=== PATIENT | female | born 1995 | race Caucasian/White ===

== ENCOUNTER → 2020-01-29 13:00 | Outpatient (BNVA) | payer OTHER, MEDICAID, SELFPAY | PROVIDERS: Family Provider Nurse Practitioner; PCP Nurse Practitioner; Visit Provider Obstetrics & Gynecology | DX: Z32.01 Encounter for pregnancy test, result positive (principal) | CPT/HCPCS: 81025 ==

== ENCOUNTER 2020-02-10 17:19 | Emergency (ER) | payer OTHER, MEDICAID, SELFPAY ==
[2020-02-10 17:25] VITALS: BP 143/92; PULSE 108; RESP 17; TEMP 36.3; O2SAT 100; BMI 25.7
--- NOTE | 2020-02-10 17:28 | ED_ITS ---
HPI - General: Chief complaint: Urogenital-Female Stated complaint: PREG/BLEEDING 6 WEEKS Time Seen by Provider: 02/10/20 17:23 Source: patient Mode of arrival: ambulatory Limitations: no limitations History of Present Illness: HPI Narrative: 24-year-old female is currently 6 weeks states she has had slight bleeding over the last 2 days. She states she has passed small clots as well. Patient states she has had some lower abdominal cramping pain she rates a 2 out of 10. Denies any fevers. This is her first . Complaint: vaginal bleeding Onset (ago): day(s) Location: pelvis Severity: mild Quality: Cramping Relieving factors: none Exacerbating factors: none Vaginal discharge: none Vaginal bleeding: light Associated symptoms: Deny abdominal pain, headache(s), nausea or vomiting Review of Systems Const: Denies: fever, chills, body aches or change in appetite Eyes: Denies: blurry vision or eye discomfort ENMT: Denies: throat pain or dental pain Card: Denies: chest pain Resp: Denies: shortness of breath GI: Denies: abdominal pain, nausea, vomiting or diarrhea : Reports: vaginal bleeding Musc: Denies: neck pain or back pain Skin/Breast: Denies: rash Neuro: Denies: headache Psych: Denies: depression Jarett/Lymph: Denies: easy bruising All/Imm: Denies: hives PFSH ED PFSH: Medical History PCOS (polycystic ovarian syndrome) Situational anxiety Surgical History History of oral surgery Family History Other Cancer Heart disease Hypertension Social History Smoking and tobacco status: never smoked Second hand smoke exposure: Yes Smoking risk assessment/counseling performed?: Yes Alcohol intake: current Alcohol intake frequency: holidays/special occasions only Desire information about alcohol rehabilitation?: No Counseling given: No Desire information about substance/drug rehabilitation?: No Counseling given: No Adopted: No Caregiver/support person: No Lives independently: Yes Household members: significant other Marital status: Single Number of children: 0 Number of grandchildren: 0 service: No Current occupational status: employed History of recent travel: No Sexually active: Yes Current gender identity: Female Physical Exam Const: COMMON NORMALS: no apparent distress, oriented x3 and healthy appearing HENMT: COMMON NORMALS: normocephalic and head/scalp atraumatic HEAD & SCALP: normocephalic and atraumatic Eye: COMMON NORMALS: PERRL and EOMs intact bilaterally PUPIL: Yes PERRL Neck/C-Spine: COMMON NORMALS: full ROM and supple Chest: COMMONS NORMALS: inspection of chest normal and palpation of chest normal Resp: COMMON NORMALS: normal respiratory effort, no retractions, no use of accessory muscles and clear to auscultation bilaterally AUSCULTATION: clear to auscultation bilaterally Cardio: COMMON NORMALS: regular rate, regular rhythm and no murmurs RATE: regular rate RHYTHM: regular rhythm GI: COMMON NORMALS: normal to inspection, nondistended, normoactive bowel sounds, soft to palpation, non-tender and no masses PALPATION: Yes soft Extremity: COMMON NORMALS: normal to inspection and full ROM Neuro: COMMON NORMALS: oriented x3, moves all extremities and no focal motor deficits Psych: COMMON NORMALS: mental status grossly normal, thought process normal and cooperative THOUGHT PROCESS: normal thought process Skin: COMMON NORMALS: no rashes or lesions noted and no wounds GENERAL SKIN EXAM: no rashes or lesions noted Course Vital Signs: Vital signs: Vital Signs Temperature 97.4 F L 02/10/20 17:25 Pulse Rate 101 H 02/10/20 18:04 Respiratory Rate 16 02/10/20 18:04 Blood Pressure 127/62 02/10/20 18:04 Pulse Oximetry 100 02/10/20 18:04 MDM - OB/Uterine Contractions MDM Narrative: Medical decision making narrative: Patient presents here with likely miscarriage. Patient's bleeding is minimal and she is stable for discharge. She is to get her quantitative level checked in 2 days. She is return if worsening. Lab Data: Labs: Lab Results 02/10/20 02/10/20 02/10/20 Range/Units 17:30 17:30 17:30 WBC 10.3 H (4.0-10.0) 10^3/ uL RBC 4.41 (4.1-5.3) 10^6/u L Hgb 12.8 (11.5-15.3) g/dL Hct 39.4 (37.0-47.0) % MCV 89.3 (81-99) fL MCH 29.0 (28.0-34.0) pg MCHC 32.5 (30.0-36.0) g/dL RDW 13.6 (12.1-15.1) % Plt Count 355 (130-400) 10^3/c mm MPV 8.8 (7.4-10.4) fL Neut % (Auto) 59.7 % Lymph % (Auto) 31.1 % [place] % (Auto) 6.9 % Eos % (Auto) 1.3 % Baso % (Auto) 0.6 % Neut # (Auto) 6.2 (1.8-7.7) 10^3/u L Lymph # (Auto) 3.2 (0.8-4.8) 10^3/u L [place] # (Auto) 0.7 (0.2-0.9) 10^3/u L Eos # (Auto) 0.1 (0.0-0.8) 10^3/u L Baso # (Auto) 0.1 (0.0-0.1) 10^3/u L Nucleated RBC % (a uto) 0 % Nucleated RBCs # 0.0 /100WBC Ser , Fer[place] i-Qnt 397.80 mIU/mL Blood Type O Positive Rho(D) Type Positive Imaging Data^: US OB: Attestation: I personally reviewed and interpreted this imaging study as follows: Radiologist's impression: likely spontaneous Discharge Plan Discharge Patient Disposition: Home, Self-Care Clinical Impression: Threatened miscarriage Condition: Stable Prescriptions: No Action bupropion HCl [Wellbutrin SR] 150 mg tablet sustained-release 12 hr 150 mg PO Q12H Qty: 60 RF: 5 Ortho-Novum (28) 1-35 mg-mcg tablet 1 tab PO DAILY Qty: 28 RF: 5 Discharge Orders: Discharge Order (Routine); Ordered 02/10/20 Ordered By: Elton Mancilla Referrals: Elias Gunn, TELEPRINTER-C [Primary Care Provider] - Discharge Diet: Advance as tolerated Discharge Activity: Resume usual activity Patient Instructions: Threatened Miscarriage (ED) Coding Level of Care Code ED Electrical Line Splicer for Chg Fwd Exam Comprehensive
[2020-02-10 17:30] VITALS: BP 139/81; PULSE 95; RESP 16; O2SAT 100
[2020-02-10 17:35] VITALS: BP 138/74; PULSE 103; RESP 16; O2SAT 98
[2020-02-10 17:41] LABS: Basophils # 0.1 10^3/uL (0.0-0.1); Basophils % 0.6 %; Eosinophils # 0.1 10^3/uL (0.0-0.8); Eosinophils % 1.3 %; Hematocrit 39.4 % (37.0-47.0); Hemoglobin 12.8 g/dL (11.5-15.3); Lymphocytes # 3.2 10^3/uL (0.8-4.8); Lymphocytes % 31.1 %; Mean Corpuscular HGB Conc 32.5 g/dL (30.0-36.0); Mean Corpuscular Volume 89.3 fL (81-99); Mean Platelet Volume 8.8 fL (7.4-10.4); Monocytes # 0.7 10^3/uL (0.2-0.9); Monocytes % 6.9 %; Neutrophils # 6.2 10^3/uL (1.8-7.7); Neutrophils % 59.7 %; Nucleated Red Blood Cells % 0 %; Platelet Count 355 10^3/cmm (130-400); Red Blood Count 4.41 10^6/uL (4.1-5.3); Red Cell Distribution Width 13.6 % (12.1-15.1); White Blood Count 10.3 10^3/uL (4.0-10.0)
--- NOTE | 2020-02-10 17:48 | US_ITS ---
WS: [id number] Transabdominal and transvaginal pelvic imaging. HISTORY: Threatened miscarriage. No intrauterine gestation is noted on transvaginal or transabdominal imaging. Endometrium is very sli ghtly thickened and heterogeneous. No free fluid. No adnexal masses. US/US OB lmt with transvaginal IMPRESSION: 1. No intrauterine gestational sac is identified. 2. No free fluid. 3. No adnexal masses. 4. Correlate for decreasing beta hCG levels to exclude ectopic .
[2020-02-10 18:04] VITALS: BP 127/62; PULSE 101; RESP 16; O2SAT 100
[2020-02-10 18:48] VITALS: BP 122/75; PULSE 92; RESP 16; O2SAT 99
== END 2020-02-10 19:00 | disposition home or self-care (01) ==
PROVIDERS: Emergency Provider Emergency Medicine; Family Provider Nurse Practitioner; PCP Nurse Practitioner
DX: O20.0 Threatened abortion (principal); Z3A.01 Less than 8 weeks gestation of pregnancy
CPT/HCPCS: 12345; 76801; 76815; 76817; 84702; 85025; 86900; 99281; 99282; 99283

== ENCOUNTER → 2020-02-13 13:51 | Outpatient (BNVA) | payer OTHER, MEDICAID, SELFPAY | PROVIDERS: Family Provider Nurse Practitioner; PCP Nurse Practitioner; Visit Provider Obstetrics & Gynecology | DX: O20.0 Threatened abortion (principal); Z34.90 Encounter for supervision of normal pregnancy, unspecified, unspecified trimester | CPT/HCPCS: 84702 ==

== ENCOUNTER → 2020-02-17 11:12 | Outpatient (BNVA) | payer OTHER, MEDICAID, SELFPAY | PROVIDERS: Family Provider Nurse Practitioner; PCP Nurse Practitioner; Visit Provider Obstetrics & Gynecology | DX: O20.0 Threatened abortion (principal) | CPT/HCPCS: 84702 ==

== ENCOUNTER → 2020-02-19 09:10 | Outpatient (BNVA) | payer OTHER, MEDICAID, SELFPAY | PROVIDERS: Family Provider Nurse Practitioner; PCP Nurse Practitioner; Visit Provider Obstetrics & Gynecology | DX: O46.90 Antepartum hemorrhage, unspecified, unspecified trimester (principal) | CPT/HCPCS: 87491; 87591 ==

== ENCOUNTER 2020-02-21 08:19 | Observation (INO) | payer OTHER, MEDICAID, SELFPAY ==
[2020-02-21] VITALS (22 sets, daily range): BP systolic 100–130; BP diastolic 50–74; PULSE 81–117; RESP 16–20; TEMP 36.4–37.3; O2SAT 96–100; BMI 26.5
--- NOTE | 2020-02-21 09:13 | W.ED.ABDPA2 ---
Documented by User: VELIA Serrano 02/21/20 10:38 HPI - Abdominal Pain General: Chief Complaint: Nausea/Vomiting/Diarrhea Stated Complaint: ABD PAIN, N/V/D Time Seen by Provider: 02/21/20 08:36 Source: patient Mode of arrival: ambulatory Limitations: no limitations History of Present Illness: HPI narrative: Patient is a very nice 24-year-old female at approximately 5 weeks here for complaints of abdominal pain. Patient has had ultrasounds previously which has not showed a confirmed IUP. Her last hCG on 02/16 was roughly 1800. She states last night around 11 PM while in the bathtub she began having severe midline abdominal pain. She states afterwards she had several episodes of diarrhea and vomiting. She reports afterwards she began having pain radiating up into her bilateral shoulders. She has felt dizzy and lightheaded throughout the day today. MD elicited complaint: abdominal pain and other (nausea, vomiting, diarrhea ) Onset (ago): hour(s) Pain Consistency: constant Location: Diffuse (moreso on R side) Quality: cramping and aching Radiation: RUQ Migration to: other (bilateral shoulders ) Exacerbating factors: other (positional ) Associated Symptoms: Reports diarrhea, nausea and vomiting; Denies chills, dysuria, fever(s) and syncope Related Data: Date of Last Menstrual Period: 01/12/20 Review of Systems Const: Denies: fever, chills or body aches Eyes: Denies: change in vision, blurry vision or seeing flashes ENMT: Denies: throat pain, enlarged tonsils or painful swallowing Card: Denies: chest pain, palpitations, irregular heart rhythm, edema, lightheadedness, syncope, pre-syncope or shortness of breath on exertion Resp: Denies: shortness of breath, productive cough, non-productive cough, coughing up blood or chest congestion GI: Reports: abdominal pain, nausea, vomiting and diarrhea : Reports: vaginal bleeding (has had this over the past 1-2 weeks ); Denies: flank pain, difficulty urinating, painful urination, urinary frequency, urinary urgency, urinary hesitancy or vaginal discharge Musc: Denies: neck pain or back pain Skin/Breast: Denies: rash Neuro: Denies: headache, numbness in extremities, weakness in extremities or changes in sensation PFSH ED PFSH: Medical History History of infertility She and her boyfriend were unable to get and as a result underwent evaluation for infertility in [id number] Wilkes the results of which were normal and she underwent 1 cycle of Clomid however decided to wait after that and not follow-up with any treatment. No pertinent past medical history Denies diabetes, asthma, seizures, hypertension, DVT/PE. PMD: Elias Gunn PCOS (polycystic ovarian syndrome) Diagnosed with PCOS in 2018 with irregular cycles and elevated testosterone levels by Dr. Wilkes. She was placed on control pills to regulate cycles. Situational anxiety Had anxiety treated by Wellbutrin. She stopped in December or January as she was not a good pill taker and at this time is asymptomatic. Surgical History History of oral surgery [place] teeth removal in 2013 Family History Family/Other Heart disease Paternal great uncles Father Hypertension Grandmother Multiple sclerosis maternal Denies family history of Colon cancer Ovarian cancer Diabetes Hyperlipidemia Breast cancer Uterine cancer Thyroid condition Stroke Social History Smoking and tobacco status: former smoker Alcohol intake: former Additional social history: - TOBACCO USE: Started smoking at age 18 and smoked up to 1 pack per day until 11/2019 when she stopped smoking. Denies any tobacco use since then. ALCOHOL USE: Reports history of social alcohol use, once yearly on average, denies use since becoming . DRUG USE: Has used marijuana 1-2 times a month from the age of 17 until the age of 19 and 2018. Denies any use since then. Denies any other drug use as well. 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 Female Reproductive History: Date of last menstrual period: 01/12/20 Physical Exam Const: COMMON NORMALS: no apparent distress, average body habitus, oriented x3, no limitations, healthy appearing, alert and well nourished GENERAL APPEARANCE: cooperative and anxious OTHER: appears anxious HENMT: COMMON NORMALS: normocephalic and head/scalp atraumatic HEAD & SCALP: normocephalic and atraumatic Neck/C-Spine: COMMON NORMALS: full ROM and no lymphadenopathy OTHER: no crepitus noted Chest: COMMONS NORMALS: inspection of chest normal and palpation of chest normal Resp: COMMON NORMALS: normal respiratory effort and clear to auscultation bilaterally AUSCULTATION: clear to auscultation bilaterally Cardio: COMMON NORMALS: regular rhythm RATE: tachycardic (mild) RHYTHM: regular rhythm OTHER: when pt sat up from lying down for abdominal exam she became tachycardic in the 130s GI: COMMON NORMALS: no hepatosplenomegaly and no masses AUSCULTATION: Yes hypoactive bowel sounds PALPATION: Yes tender (diffusely ) and Yes no hepatosplenomegaly : COMMON NORMALS: Yes no CVA tenderness BLADDER/KIDNEY EXAM: Yes no CVA tenderness Back/Pelvis: COMMON NORMALS: no CVA tenderness Neuro: RICARDO COMA SCALE: document GCS findings Anderson coma scale eye opening: Spontaneous Ricardo coma scale verbal response: Orientated Ricardo coma scale motor response: Obey commands Ricardo coma scale total score: 15 COMMON NORMALS: oriented x3 SENSORIUM/ORIENTATION: Yes alert Skin: GENERAL SKIN EXAM: other (diaphoretic) Course Vital Signs: Vital signs: Vital Signs Temperature 98.0 F 02/21/20 18:27 Pulse Rate 106 H 02/21/20 18:27 Respiratory Rate 16 02/21/20 18:27 Blood Pressure 108/64 02/21/20 18:27 Pulse Oximetry 98 02/21/20 18:27 MDM - Abdominal Pain MDM Narrative: Medical decision making narrative: Based on patient's clinical exam of a diffuse abdominal pain with radiation into her shoulders as well as becoming very tachycardic with sitting up I have a high suspicion of a ruptured ectopic . Dr. Kim was alerted. Ultrasound was contacted for a stat ultrasound which did show blood in her abdominal cavity. Her hemoglobin currently is 10.5. She was 12.8 on 02/09. Dr. Kim spoke to Dr. Blackburn who will immediately come evaluate patient and take to the OR. Patient was typed and screened her 4 units of blood. She has had almost a liter of fluids and a second liter was ordered. TXA was given. Lab Data: Labs: Lab Results 05/08/20 05/08/20 05/08/20 Range/Units 09:15 09:15 09:15 WBC 19.5 H (4.0-10.0) 10^3/ uL RBC 3.58 L (4.1-5.3) 10^6/u L Hgb 10.5 L (11.5-15.3) g/dL Hct 32.5 L (37.0-47.0) % MCV 90.8 (81-99) fL MCH 29.3 (28.0-34.0) pg MCHC 32.3 (30.0-36.0) g/dL RDW 13.6 (12.1-15.1) % Plt Count 400 (130-400) 10^3/c mm MPV 9.4 (7.4-10.4) fL Neut % (Auto) 89.9 % Lymph % (Auto) 7.2 % Sublette % (Auto) 2.3 % Eos % (Auto) 0.0 % Baso % (Auto) 0.1 % Neut # (Auto) 17.5 H (1.8-7.7) 10^3/u L Lymph # (Auto) 1.4 (0.8-4.8) 10^3/u L Sublette # (Auto) 0.4 (0.2-0.9) 10^3/u L Eos # (Auto) 0.0 (0.0-0.8) 10^3/u L Baso # (Auto) 0.0 (0.0-0.1) 10^3/u L Nucleated RBC % (a uto) 0 % Nucleated RBCs # 0.0 /100WBC Sodium 137 (136-145) mmol/L Potassium 4.5 (3.5-5.1) mmol/L Chloride 101 (98-107) mmol/L Carbon Dioxide 21 L (22-29) mmol/L Anion Gap 19.5 H (5-19) BUN 18 (6-20) mg/dL Creatinine 0.8 (0.5-0.9) mg/dL GFR Calculation 89.7 L (90-130) mL/min Glucose 181 H (65-115) mg/dL Calculated Osmolal ity 285 (285-295) mOsm/k g Lactate 3.1 H (0.5-2.2) mmol/L Calcium 9.0 (8.5-10.5) mg/dL Total Bilirubin 0.2 (0.15-1.2) mg/dL AST 15 (0-32) U/L ALT 13 (0-33) U/L Alkaline Phosphata se 54 (35-105) IU/L Total Protein 7.2 (6.6-8.7) g/dL Albumin 4.3 (3.5-5.2) g/dL Globulin 2.9 (1.3-4.6) g/dL Lipase 13 (13-60) U/L Ser , Fercho i-Qnt 2927.00 mIU/mL Blood Type Rho(D) Type Antibody Screen Crossmatch 02/21/20 02/21/20 Range/Units 09:48 10:44 WBC (4.0-10.0) 10^3/ uL RBC (4.1-5.3) 10^6/u L Hgb 8.6 L (11.5-15.3) g/dL Hct 26.7 L (37.0-47.0) % MCV (81-99) fL MCH (28.0-34.0) pg MCHC (30.0-36.0) g/dL RDW (12.1-15.1) % Plt Count (130-400) 10^3/c mm MPV (7.4-10.4) fL Neut % (Auto) % Lymph % (Auto) % [place]lette % (Auto) % Eos % (Auto) % Baso % (Auto) % Neut # (Auto) (1.8-7.7) 10^3/u L Lymph # (Auto) (0.8-4.8) 10^3/u L Sublette # (Auto) (0.2-0.9) 10^3/u L Eos # (Auto) (0.0-0.8) 10^3/u L Baso # (Auto) (0.0-0.1) 10^3/u L Nucleated RBC % (a uto) % Nucleated RBCs # /100WBC Sodium (136-145) mmol/L Potassium (3.5-5.1) mmol/L Chloride (98-107) mmol/L Carbon Dioxide (22-29) mmol/L Anion Gap (5-19) BUN (6-20) mg/dL Creatinine (0.5-0.9) mg/dL GFR Calculation (90-130) mL/min Glucose (65-115) mg/dL Calculated Osmolal ity (285-295) mOsm/k g Lactate (0.5-2.2) mmol/L Calcium (8.5-10.5) mg/dL Total Bilirubin (0.15-1.2) mg/dL AST (0-32) U/L ALT (0-33) U/L Alkaline Phosphata se (35-105) IU/L Total Protein (6.6-8.7) g/dL Albumin (3.5-5.2) g/dL Globulin (1.3-4.6) g/dL Lipase (13-60) U/L Ser , Fercho i-Qnt mIU/mL Blood Type O Positive Rho(D) Type Positive Antibody Screen Negative Crossmatch See Detail Discharge Plan Discharge Patient Disposition: Admitted As Inpatient Admit Provider: Kris lBackburn Clinical Impression: Hemoperitoneum due to rupture of tubal ectopic Condition: Stable Discharge Orders: Discharge Order (Routine); Ordered 02/21/20 Ordered By: Kris Blackburn Referrals: Kris Blackburn MD [Physician] - 03/06/20 11:00 am (Postoperative appointment) Discharge Diet: Advance as tolerated Discharge Activity: Limit activity as instructed Patient Instructions: Hydrocodone/Acetaminophen (By mouth), Ibuprofen (By mouth), Ectopic , OB Discharge Report, OB Laproscopic Surgery - [facility], OB Food/Drug Interaction Guide Discharge Date/Time: 02/21/20 12:38 Coding Level of Care Code ED Director Cardiovascular for Chg Fwd Exam Comprehensive Documented by User: Zach Kim DO 02/22/20 07:08 HPI - Abdominal Pain General: Chief Complaint: Nausea/Vomiting/Diarrhea Stated Complaint: ABD PAIN, N/V/D Time Seen by Provider: 02/21/20 08:36 History of Present Illness: HPI narrative: 24-year-old female initially seen by VELIA. She had acute peritoneal signs had recently been evaluated for had an LMP of up approximately 12/29/2019. She had an ultrasound at [facility] office but there is no intrauterine however it was really early in the . This morning suddenly around 4:00 she began getting severe abdominal pain with nausea and vomiting pain radiating up into her upper chest worse with deep breath and radiating to her shoulders as well. She is very pale in appearance and is extremely tachycardic when she even sits up or walks she will have her heart rate elevated into the 130s. She denies any other recent illness no cough cold symptoms no fever denies dysuria urgency or frequency denies nausea or vomiting with hematemesis or coffee-ground emesis no melena. MD elicited complaint: abdominal pain Pain Consistency: constant Location: Diffuse Severity: severe Quality: stabbing and sharp Radiation: other (Shoulders) Exacerbating factors: movement Relieving factors: nothing Context: other () Associated Symptoms: Reports anorexia, bloating, GI cramping, nausea and poor appetite; Denies change in stool character, chills, coffee ground emesis, diarrhea, dyspepsia, fever(s), heartburn, hematochezia, hematuria, hematemesis, loose stools, melena and vomiting Review of Systems Const: Denies: fever, chills, body aches, change in appetite, fatigue or malaise ENMT: Denies: throat pain, ear pain, nasal discharge or nasal congestion Card: Denies: chest pain, edema, shortness of breath on exertion or shortness of breath when lying down Resp: Denies: shortness of breath, productive cough or non-productive cough GI: Reports: abdominal pain, nausea, bloating and cramping; Denies: vomiting, vomiting blood, coffee grounds in vomit, heartburn/indigestion, diarrhea, change in stool character, blood in stool or black tarry stool : Denies: blood in urine Skin/Breast: Denies: rash or itching PFS ED PFSH: Medical History History of infertility She and her boyfriend were unable to get and as a result underwent evaluation for infertility in [id number] Wilkes the results of which were normal and she underwent 1 cycle of Clomid however decided to wait after that and not follow-up with any treatment. No pertinent past medical history Denies diabetes, asthma, seizures, hypertension, DVT/PE. PMD: Elias Gunn PCOS (polycystic ovarian syndrome) Diagnosed with PCOS in 2018 with irregular cycles and elevated testosterone levels by Dr. Wilkes. She was placed on control pills to regulate cycles. Situational anxiety Had anxiety treated by Wellbutrin. She stopped in December or January as she was not a good pill taker and at this time is asymptomatic. Surgical History History of oral surgery [place] teeth removal in 2013 Family History Family/Other Heart disease Paternal great uncles Father Hypertension Grandmother Multiple sclerosis maternal Denies family history of Colon cancer Ovarian cancer Diabetes Hyperlipidemia Breast cancer Uterine cancer Thyroid condition Stroke Social History Smoking and tobacco status: former smoker Alcohol intake: former Additional social history: - TOBACCO USE: Started smoking at age 18 and smoked up to 1 pack per day until 11/2019 when she stopped smoking. Denies any tobacco use since then. ALCOHOL USE: Reports history of social alcohol use, once yearly on average, denies use since becoming . DRUG USE: Has used marijuana 1-2 times a month from the age of 17 until the age of 19 and 2018. Denies any use since then. Denies any other drug use as well. 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 Physical Exam Const: COMMON NORMALS: average body habitus, oriented x3 and alert GENERAL APPEARANCE: cooperative, comfortable, well kempt and well developed NUTRITIONAL APPEARANCE: obese ORIENTATION/CONSCIOUSNESS: Yes awake, Yes oriented to person and Yes oriented to place Neck/C-Spine: COMMON NORMALS: full ROM, no lymphadenopathy, supple, no meningeal signs and thyroid normal THYROID: thyroid normal and asymmetrical Lymph: LYMPHATIC: no lymphadenopathy noted Resp: COMMON NORMALS: normal respiratory effort, no retractions, no use of accessory muscles and clear to auscultation bilaterally AUSCULTATION: clear to auscultation bilaterally Cardio: COMMON NORMALS: regular rate and regular rhythm RATE: regular rate RHYTHM: regular rhythm HEART SOUNDS: no murmurs GI: COMMON NORMALS: no hepatosplenomegaly AUSCULTATION: Yes normoactive bowel sounds PALPATION: Yes guarding, Yes rigid and Yes no hepatosplenomegaly : COMMON NORMALS: Yes no CVA tenderness BLADDER/KIDNEY EXAM: Yes no CVA tenderness Back/Pelvis: COMMON NORMALS: no CVA tenderness LUMBAR SPINE/LOWER BACK: Yes normal to inspection Extremity: COMMON NORMALS: no clubbing, cyanosis or edema, no calf tenderness and no pedal edema Neuro: COMMON NORMALS: oriented x3 SENSORIUM/ORIENTATION: Yes alert, Yes oriented to person and Yes oriented to place MENINGEAL SIGNS: Yes no meningeal signs Psych: APPEARANCE: Yes well kempt Skin: COMMON NORMALS: no rashes or lesions noted and skin turgor normal GENERAL SKIN EXAM: no rashes or lesions noted and turgor normal Course Vital Signs: Vital signs: Vital Signs Temperature 98.0 F 02/21/20 18:27 Pulse Rate 106 H 02/21/20 18:27 Respiratory Rate 16 02/21/20 18:27 Blood Pressure 108/64 02/21/20 18:27 Pulse Oximetry 98 02/21/20 18:27 MDM - Abdominal Pain MDM Narrative: Medical decision making narrative: Patient has an acute abdomen given a history and exam findings highly suggestive of a ruptured ectopic . She is pale in appearance and quickly becomes tachycardic with any activity even within the bed. On initial arrival nurse states she was diaphoretic. Her hemoglobin is dropped a little over 2 points from previous hemoglobin 2 weeks ago. 2 units of blood have been ordered TXA has been ordered emergency consult in the emergency emergency room by Dr. Blackburn has been asked for I discussed with him he is in route to the emergency room I have called the smokehouse operator to arrange for an operating room anticipate patient will need to go to surgery immediately. Please see Dr. Blackburn's notes. Lab Data: Labs: Lab Results 02/21/20 02/21/20 02/21/20 Range/Units 09:15 09:15 09:15 WBC 19.5 H (4.0-10.0) 10^3/ uL RBC 3.58 L (4.1-5.3) 10^6/u L Hgb 10.5 L (11.5-15.3) g/dL Hct 32.5 L (37.0-47.0) % MCV 90.8 (81-99) fL MCH 29.3 (28.0-34.0) pg MCHC 32.3 (30.0-36.0) g/dL RDW 13.6 (12.1-15.1) % Plt Count 400 (130-400) 10^3/c mm MPV 9.4 (7.4-10.4) fL Neut % (Auto) 89.9 % Lymph % (Auto) 7.2 % Sublette % (Auto) 2.3 % Eos % (Auto) 0.0 % Baso % (Auto) 0.1 % Neut # (Auto) 17.5 H (1.8-7.7) 10^3/u L Lymph # (Auto) 1.4 (0.8-4.8) 10^3/u L Sublette # (Auto) 0.4 (0.2-0.9) 10^3/u L Eos # (Auto) 0.0 (0.0-0.8) 10^3/u L Baso # (Auto) 0.0 (0.0-0.1) 10^3/u L Nucleated RBC % (a uto) 0 % Nucleated RBCs # 0.0 /100WBC Sodium 137 (136-145) mmol/L Potassium 4.5 (3.5-5.1) mmol/L Chloride 101 (98-107) mmol/L Carbon Dioxide 21 L (22-29) mmol/L Anion Gap 19.5 H (5-19) BUN 18 (6-20) mg/dL Creatinine 0.8 (0.5-0.9) mg/dL GFR Calculation 89.7 L (90-130) mL/min Glucose 181 H (65-115) mg/dL Calculated Osmolal ity 285 (285-295) mOsm/k g Lactate 3.1 H (0.5-2.2) mmol/L Calcium 9.0 (8.5-10.5) mg/dL Total Bilirubin 0.2 (0.15-1.2) mg/dL AST 15 (0-32) U/L ALT 13 (0-33) U/L Alkaline Phosphata se 54 (35-105) IU/L Total Protein 7.2 (6.6-8.7) g/dL Albumin 4.3 (3.5-5.2) g/dL Globulin 2.9 (1.3-4.6) g/dL Lipase 13 (13-60) U/L Ser , Fercho i-Qnt 2927.00 mIU/mL Blood Type Rho(D) Type Antibody Screen Crossmatch 02/21/20 02/21/20 Range/Units 09:48 10:44 WBC (4.0-10.0) 10^3/ uL RBC (4.1-5.3) 10^6/u L Hgb 8.6 L (11.5-15.3) g/dL Hct 26.7 L (37.0-47.0) % MCV (81-99) fL MCH (28.0-34.0) pg MCHC (30.0-36.0) g/dL RDW (12.1-15.1) % Plt Count (130-400) 10^3/c mm MPV (7.4-10.4) fL Neut % (Auto) % Lymph % (Auto) % Sublette % (Auto) % Eos % (Auto) % Baso % (Auto) % Neut # (Auto) (1.8-7.7) 10^3/u L Lymph # (Auto) (0.8-4.8) 10^3/u L Sublette # (Auto) (0.2-0.9) 10^3/u L Eos # (Auto) (0.0-0.8) 10^3/u L Baso # (Auto) (0.0-0.1) 10^3/u L Nucleated RBC % (a uto) % Nucleated RBCs # /100WBC Sodium (136-145) mmol/L Potassium (3.5-5.1) mmol/L Chloride (98-107) mmol/L Carbon Dioxide (22-29) mmol/L Anion Gap (5-19) BUN (6-20) mg/dL Creatinine (0.5-0.9) mg/dL GFR Calculation (90-130) mL/min Glucose (65-115) mg/dL Calculated Osmolal ity (285-295) mOsm/k g Lactate (0.5-2.2) mmol/L Calcium (8.5-10.5) mg/dL Total Bilirubin (0.15-1.2) mg/dL AST (0-32) U/L ALT (0-33) U/L Alkaline Phosphata se (35-105) IU/L Total Protein (6.6-8.7) g/dL Albumin (3.5-5.2) g/dL Globulin (1.3-4.6) g/dL Lipase (13-60) U/L Ser , Fercho i-Qnt mIU/mL Blood Type O Positive Rho(D) Type Positive Antibody Screen Negative Crossmatch See Detail Discharge Plan Discharge Patient Disposition: Admitted As Inpatient Admit Provider: Kris Blackburn Clinical Impression: Hemoperitoneum due to rupture of tubal ectopic Condition: Stable Discharge Orders: Discharge Order (Routine); Ordered 02/21/20 Ordered By: Kris Blackburn Referrals: Kris Blackburn MD [Physician] - 03/06/20 11:00 am (Postoperative appointment) Discharge Diet: Advance as tolerated Discharge Activity: Limit activity as instructed Patient Instructions: Hydrocodone/Acetaminophen (By mouth), Ibuprofen (By mouth), Ectopic , OB Discharge Report, OB Laproscopic Surgery - [facility], OB Food/Drug Interaction Guide Discharge Date/Time: 02/21/20 12:38 Coding Level of Care Code ED Director Cardiovascular for Chg Fwd Exam Comprehensive
--- NOTE | 2020-02-21 09:15 | US_ITS ---
WS: [id number] US OB transvaginal [id number] REASON FOR EXAM: 5 wks preg; abdominal pain; rule out ectopic FINDINGS: The uterus measures 7.86 cm. The empty uterus is identified. There is evidence of blood in the cul-de-sac and in pelvis and abdomen. The right ovary measured 2.68 x 2.56 cm. The left ovary area is not identified other than blood and with this finding and if a positive hCG is evident ectopic should be considered. US/US pelvic complete* [id number] IMPRESSION: Empty uterus is noted We suspected blood in the left adnexa region cul-de-sac area as well as the abd omen. If suspect ectopic we cannot rule this out with these findings partic ularly with the blood in the pelvis abdomen and an empty uterus.
[2020-02-21] MEDS: ondansetron 2 mg/ML SDV 2 mL 4 MG IVP ×2 (09:22→10:47)
[2020-02-21] MEDS: sodium chloride 0.9% 1,000 ML 999 ML IV ×2 (09:23→09:48)
[2020-02-21 09:27] LABS: Basophils % 0.1 %; Hematocrit 32.5 % (37.0-47.0); Hemoglobin 10.5 g/dL (11.5-15.3); Lymphocytes # 1.4 10^3/uL (0.8-4.8); Lymphocytes % 7.2 %; Mean Corpuscular HGB Conc 32.3 g/dL (30.0-36.0); Mean Corpuscular Hemoglobin 29.3 pg (28.0-34.0); Mean Corpuscular Volume 90.8 fL (81-99); Mean Platelet Volume 9.4 fL (7.4-10.4); Monocytes # 0.4 10^3/uL (0.2-0.9); Monocytes % 2.3 %; Neutrophils # 17.5 10^3/uL (1.8-7.7); Neutrophils % 89.9 %; Nucleated Red Blood Cells % 0 %; Platelet Count 400 10^3/cmm (130-400); Red Blood Count 3.58 10^6/uL (4.1-5.3); Red Cell Distribution Width 13.6 % (12.1-15.1); White Blood Count 19.5 10^3/uL (4.0-10.0)
--- NOTE | 2020-02-21 09:30 | PC.NURSE ---
PORTABLE ULTRASOUND AT BEDSIDE, ER PHYSICIAN IN ROOM. SURGICAL PACKET STARTED.
[2020-02-21 09:43] LABS: Lactate (Lactic Acid level) 3.1 mmol/L (0.5-2.2)
[2020-02-21] MEDS: morphine 4 mg/mL SDV 1 mL 2 MG IVP (09:47)
[2020-02-21 09:50] LABS: Alanine Aminotransferase 13 U/L (0-33); Albumin Level 4.3 g/dL (3.5-5.2); Alkaline Phosphatase 54 IU/L (35-105); Anion Gap 19.5 (5-19); Aspartate Amino Transferase 15 U/L (0-32); Blood Urea Nitrogen 18 mg/dL (6-20); Carbon Dioxide 21 mmol/L (22-29); Chloride 101 mmol/L (98-107); Globulin 2.9 g/dL (1.3-4.6); Glomerular Filtration Rate 89.7 mL/min (90-130); Glucose 181 mg/dL (65-115); Lipase 13 U/L (13-60); Osmolality Calculated 285 mOsm/kg (285-295); Potassium 4.5 mmol/L (3.5-5.1); Sodium 137 mmol/L (136-145); Total Bilirubin 0.2 mg/dL (0.15-1.2); Total Protein 7.2 g/dL (6.6-8.7)
--- NOTE | 2020-02-21 10:17 | PM.OBGYHP ---
Providers/Chief Complaint Admitting Physician: Kris Blackburn MD Primary CARDIAC CATH LAB TECHNOLOGIST: Dr. Sarabia Primary Care Provider: GISELE Lima Chief Complaint: ECTOPIC HPI CARDIAC CATH LAB TECHNOLOGIST History of Present Illness Mckenna Granados is a 24 year old female 1, para 0 with an unsure LMP of 12/29/2019. She had been seen by Dr. Sarabia on 02/19/2020 and our office due to follow-up from the ER due to vaginal bleeding. She had had an ultrasound performed on the sixth which showed no intrauterine . However, quantitative hCG was low enough that a too early to be detected intrauterine could not be ruled out. As result, repeat quantitative hCG and ultrasound the following week was recommended. Patient presented to the ER today with sudden onset abdominal pain, nausea, vomiting, and diarrhea. She stated the pain was sudden in onset and started at about 11:00 at night. She reports shoulder pain associated with the pain, especially with lying down or with deep breathing. Any type of movement makes the abdominal pain worse. Ultrasound in the ER shows free fluid in the belly around the area of the uterus and also in the area of the diaphragm and kidneys. As a result, I was contacted by the ER physician and patient seen in the ER. Present Details Date of Last Menstrual Period: 01/12/20 Calculated Date of Delivery: 10/18/20 Gestational Age Based on Last Menstrual Period: 5 Review of Systems Const: Denies: fever or chills ENMT: Denies: throat pain or nasal congestion Card: Reports: chest pain (With deep breathing) and lightheadedness; Denies: palpitations Resp: Denies: shortness of breath, productive cough, non-productive cough or wheezing GI: Reports: abdominal pain, nausea, vomiting and diarrhea; Denies: constipation : Reports: vaginal bleeding; Denies: painful urination, genital itching or vaginal discharge Neuro: Reports: dizziness; Denies: headache or seizure-like activity Psych: Denies: anxiety or depression Endo: Denies: excessive urination, excessive thirst or cold intolerance Jarett/Lymph: Denies: easy bruising or easy bleeding Medications/Allergies Home Medications Medication Instructions Recorded Confirmed Last Taken Type No Known Home Medications 02/19/20 02/21/20 Unknown History Allergies Allergy/AdvReac Type Severity Reaction Status Date / Time No Known Allergies Allergy Verified 05/06/20 08:13 PFSH CARDIAC CATH LAB TECHNOLOGIST PFSH: Medical History History of infertility She and her boyfriend were unable to get and as a result underwent evaluation for infertility in [id number] Wilkes the results of which were normal and she underwent 1 cycle of Clomid however decided to wait after that and not follow-up with any treatment. No pertinent past medical history Denies diabetes, asthma, seizures, hypertension, DVT/PE. PMD: Elias Gunn PCOS (polycystic ovarian syndrome) Diagnosed with PCOS in 2018 with irregular cycles and elevated testosterone levels by Dr. Wilkes. She was placed on control pills to regulate cycles. Situational anxiety Had anxiety treated by Wellbutrin. She stopped in December or January as she was not a good pill taker and at this time is asymptomatic. Surgical History History of oral surgery [place] teeth removal in 2013 Family History Family/Other Heart disease Paternal great uncles Father Hypertension Grandmother Multiple sclerosis maternal Denies family history of Colon cancer Ovarian cancer Diabetes Hyperlipidemia Breast cancer Uterine cancer Thyroid condition Stroke Social History Smoking and tobacco status: former smoker Alcohol intake: former Additional social history: - TOBACCO USE: Started smoking at age 18 and smoked up to 1 pack per day until 11/2019 when she stopped smoking. Denies any tobacco use since then. ALCOHOL USE: Reports history of social alcohol use, once yearly on average, denies use since becoming . DRUG USE: Has used marijuana 1-2 times a month from the age of 17 until the age of 19 and 2018. Denies any use since then. Denies any other drug use as well. 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 History History History 1 Term 0 Miscarriages/Ectopic 0 0 Living Children 0 Vitals/I&O/Wt Last Vital Signs Temp 97.9 F 02/21/20 08:35 Pulse 104 H 02/21/20 09:55 Resp 17 05/08/20 09:47 BP 112/53 02/21/20 09:55 Pulse Ox 100 02/21/20 09:55 Weight last 48 hrs Weight 150 lb Physical Exam Const: COMMON NORMALS: no apparent distress, average body habitus, alert and well nourished GENERAL APPEARANCE: well developed ORIENTATION/CONSCIOUSNESS: Yes oriented to person, Yes oriented to place and Yes oriented to time Neck/C-Spine: COMMON NORMALS: thyroid normal GENERAL: Yes trachea midline THYROID: thyroid normal Resp: COMMON NORMALS: normal respiratory effort and clear to auscultation bilaterally AUSCULTATION: clear to auscultation bilaterally Cardio: COMMON NORMALS: regular rate, regular rhythm, no gallops, no murmurs and no rub RATE: regular rate RHYTHM: regular rhythm GI: COMMON NORMALS: soft to palpation, no hepatosplenomegaly and no masses AUSCULTATION: Yes normoactive bowel sounds PALPATION: Yes soft, Yes tender (Diffusely tender, more in the right lower quadrant. Pain worse with deep breathing), Yes no hepatosplenomegaly and No hernia : EXTERNAL FEMALE EXAM: No hernia Neuro: SENSORIUM/ORIENTATION: Yes alert, Yes oriented to person, Yes oriented to place and Yes oriented to time Psych: COMMON NORMALS: affect normal MOOD & AFFECT: Yes euthymic mood Skin: COMMON NORMALS: no rashes or lesions noted GENERAL SKIN EXAM: no rashes or lesions noted and pallor Data : 02/21/20 09:15 02/21/20 09:15 A&P Assessment and plan (1) Ectopic : Patient with acute abdomen based upon exam. Quantitative hCG is 2927. Ultrasound shows free fluid in the pelvis and around the diaphragm and kidney with no intrauterine seen. These are all findings consistent with ruptured ectopic. Discussed with patient that this needs to be treated surgically. Discussed with her that we would recommend starting with this as a laparoscopic surgery with the understanding that we may have to open the abdomen during the surgery. Potential removal of tube and ovary was also discussed. Potential need for blood transfusion was discussed. Questions were answered. Consent form signed. Patient being prepared for emergent surgery. Status: Acute (2) Acute blood loss anemia: Patient's blood count on 02/10/2020 had an H&H of 12.8 and 39.4. H&H today was 10.5 and 32.5. This was prior to starting IV fluids. Will recheck H&H before going to the OR. 4 units of blood have been ordered at this time. Status: Acute Attestations Medical Necessity Statement*: Patient has an ectopic with intraabdominal bleeding Coding Level of Care Code Acute Joinery Machinist for g Fwd Diagnoses Ectopic O00.90 Acute blood loss anemia D62
--- NOTE | 2020-02-21 10:20 | ANES.PREANE2 ---
Pre-Anesthetic Assessment Pre-Anesthetic Assessment: Height/Weight: Height 1.6 m Weight 68.039 kg Temp Pulse Resp BP Pulse Ox 97.9 F 104 H 17 112/53 100 02/21/20 08:35 02/21/20 09:55 02/21/20 09:47 02/21/20 09:55 02/21/20 09:55 Preop Diagnosis: Ectopic Familial anesthetic complications: none Was Beta Marychuy taken within 24 hours: N/A Last intake: NPO > 8 hrs Social: Social History: No alcohol Comment: former smoker Exam: Pre-Anes Outpt Exam: alert, oriented x 3, clear to auscultation bilaterally and regular rate & rhythm Airway: Cervical ROM: WNL MP: 4 Dentition: Full Pulmonary: Pulmonary: None reported CV/HEM: CV/HEM: None reported : : None reported Hepatic: Hepatic: None reported GI: GI: GERD Metabolic: Metabolic: None reported Musc/skel: Comments: R and L shoulder pain (acute) may be diaphragm ilrriatoin Neuropsych: Neuropsych: None reported Anesthetic Plan: ASA status: 1E Anesthesia: General Risk of > 500 ml blood loss (7ml/kg in children): No Meds/Allergies Current Medications: Current Medications Generic Name Dose Route Start Last Admin Trade Name Freq PRN Reason Stop Dose Admin Sodium Chloride 1,000 mls @ 999 m ls/hr 02/21/20 09:43 02/21/20 09:48 Sodium Chloride 0.9% IV 02/21/20 10:43 999 mls/hr .Q1H1M ONE Administration PFSH Anesthesia PFSH: Medical History (Updated 02/21/20 @ 09:58 by VELIA Serrano) History of infertility She and her boyfriend were unable to get and as a result underwent evaluation for infertility in [id number] Wilkes the results of which were normal and she underwent 1 cycle of Clomid however decided to wait after that and not follow-up with any treatment. No pertinent past medical history Denies diabetes, asthma, seizures, hypertension, DVT/PE. PMD: Elias Gunn PCOS (polycystic ovarian syndrome) Diagnosed with PCOS in 2018 with irregular cycles and elevated testosterone levels by Dr. Wilkes. She was placed on control pills to regulate cycles. Situational anxiety Had anxiety treated by Wellbutrin. She stopped in December or January as she was not a good pill taker and at this time is asymptomatic. Surgical History (Updated 02/20/20 @ 07:06 by Ekta Encarnacion MD) History of oral surgery [place] teeth removal in 2013 Family History (Updated 02/20/20 @ 07:06 by Ekta Encarnacion MD) Family/Other Heart disease Paternal great uncles Father Hypertension Grandmother Multiple sclerosis maternal Denies family history of Colon cancer Ovarian cancer Diabetes Hyperlipidemia Breast cancer Uterine cancer Thyroid condition Stroke Social History (Updated 02/20/20 @ 07:09 by Ekta Encarnacion MD) Smoking and tobacco status: former smoker Alcohol intake: former Additional social history: - TOBACCO USE: Started smoking at age 18 and smoked up to 1 pack per day until 11/2019 when she stopped smoking. Denies any tobacco use since then. ALCOHOL USE: Reports history of social alcohol use, once yearly on average, denies use since becoming . DRUG USE: Has used marijuana 1-2 times a month from the age of 17 until the age of 19 and 2018. Denies any use since then. Denies any other drug use as well. 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 Female Reproductive History: Date of last menstrual period: 01/12/20 Data Anesthesia CBC & Chem 7: 02/21/20 09:15 02/21/20 09:15 Other Labs: Laboratory Results - last 48 hr 02/21/20 02/21/20 02/21/20 09:15 09:15 09:15 WBC 19.5 H RBC 3.58 L Hgb 10.5 L Hct 32.5 L MCV 90.8 MCH 29.3 MCHC 32.3 RDW 13.6 Plt Count 400 MPV 9.4 Neut % (Auto) 89.9 Lymph % (Auto) 7.2 [place] % (Auto) 2.3 Eos % (Auto) 0.0 Baso % (Auto) 0.1 Neut # (Auto) 17.5 H Lymph # (Auto) 1.4 [place] # (Auto) 0.4 Eos # (Auto) 0.0 Baso # (Auto) 0.0 Nucleated RBC % (auto) 0 Nucleated RBCs # 0.0 Sodium 137 Potassium 4.5 Chloride 101 Carbon Dioxide 21 L Anion Gap 19.5 H BUN 18 Creatinine 0.8 GFR Calculation 89.7 L Glucose 181 H Calculated Osmolality 285 Lactate 3.1 H Calcium 9.0 Total Bilirubin 0.2 AST 15 ALT 13 Alkaline Phosphatase 54 Total Protein 7.2 Albumin 4.3 Globulin 2.9 Lipase 13 Ser , Semi-Qnt 2927.00 Cardiac Studies: No Data to Display
[2020-02-21] MEDS: sodium chloride 0.9% 1,000 ML 30 ML IV (10:46)
[2020-02-21 10:52] LABS: Hematocrit 26.7 % (37.0-47.0); Hemoglobin 8.6 g/dL (11.5-15.3)
--- NOTE | 2020-02-21 12:16 | P.OP_ITS ---
Operative Report Date of procedure: February 21, 2020 Pre-op Diagnosis: Ectopic Post-op Diagnosis: Ectopic - right fallopian tube Procedure Done: Laparoscopic right salpingectomy for treatment of ectopic Specimens removed/disposition: Right fallopian tube Surgeon: Kris Blackburn Molder Machine: Trinity Ulloa MS3 Anesthesia: General Estimated blood loss: 1100 mL blood and clot evacuated from the abdomen IV fluids: 1500 mL of crystalloid and 2 units of PRBCs Urine output (mL): 200 Complications: None Findings: Ruptured right ectopic with hemoperitoneum Brief History: 24-year-old female 1, para 0 with an unsure LMP of 12/29/2019 with known . Presented to the ER with sudden onset of abdominal pain, nausea, vomiting, and diarrhea. While in the ER she was complaining of chest discomfort related to deep breathing and shoulder discomfort with movement. She had peritoneal irritation signs with examination of the abdomen. She had an ultrasound performed which showed fluid in the abdomen and no intrauterine seen. Quantitative hCG was 2927. Based upon these findings she was felt to have an ectopic and was prepared for surgery. Procedure: The patient was taken to the operating room where general anesthesia was obtained. She was prepped and draped in the usual sterile fashion in the dorsal supine position with legs in Jose Angel style stirrups. Sequential compression boots were placed prior to starting the case. Bladder was drained. Weighted speculum was placed in the vagina and the cervix was grasped with a single-tooth tenaculum. A ZUMI was placed. The infraumbilical region was injected with 1% lidocaine with epinephrine. Skin incision was made with a knife in the lower edge of the navel and a size 10 trocar and sheath were inserted under direct visualization using an Optiview type technique. Trocar was removed and replaced with just the laparoscope confirming intra-abdominal placement. Blood was identified upon entry into the abdomen. The anterior abdominal wall was inspected and no adhesions seen. Approximately 2 cm above the pubic symphysis in the midline, skin incision was made with a knife and a size 10 trocar and sheath were inserted under direct visualization. Clots were evacuated from the anterior pelvis and superior to the uterus. Swollen right fallopian tube with bleeding from the tube was identified. In the right lower quadrant lateral to the inferior epigastric vessels, the skin was injected with 1% lidocaine with epinephrine. Skin incision was made with the knife and a 5 mm trocar and sheath were inserted under direct visualization. The right fallopian tube was grasped and the underlying mesosalpinx sealed using the LigaSure device along the entire length of the tube. At the proximal end of the tube, this was sealed and then cut using the LigaSure device. This completely excised the tube with the ruptured ectopic and the tube was removed. Clots and blood were further evacuated from the abdomen. This included blood that was along the gutters and also above the liver by the diaphragm. The pelvis was then thoroughly irrigated and rest of the uterus and ovaries and right tube inspected. No other abnormalities were noted. The dissection area was noted to be hemostatic. The abdomen was deflated and the ports removed. The umbilical site was closed with a deep stitch of 4-0 Vicryl suture followed by subcuticular closure of the skin. The other sites were closed with subcuticular closure of the skin with 4- 0 Vicryl suture. Skin edges were reapproximated with skin glue. The ZUMI was removed and there was minimal bleeding from the tenaculum site. Patient tolerated the procedures well. Sponge and needle counts were correct. DRAINS: None POSTOPERATIVE STATUS: The patient was transferred to the recovery room in satisfactory condition.
[2020-02-21] MEDS: ketorolac 30 mg/mL INJ IVP (12:40)
[2020-02-21] MEDS: HYDROcodone-acetaminophen 5-325 mg Tablet PO (14:00)
[2020-02-21 14:45] LABS: Hematocrit 33.8 % (37.0-47.0); Hemoglobin 11.5 g/dL (11.5-15.3); Mean Corpuscular Hemoglobin 29.4 pg (28.0-34.0); Mean Corpuscular Volume 86.4 fL (81-99); Mean Platelet Volume 9.3 fL (7.4-10.4); Platelet Count 242 10^3/cmm (130-400); Red Blood Count 3.91 10^6/uL (4.1-5.3); White Blood Count 16.1 10^3/uL (4.0-10.0)
--- NOTE | 2020-02-21 16:30 | PC.NURSE ---
Pt ambulating in trujillo at this time with this nurse. Pt ambulated 2 laps around OB dept. Pt tolerated well.
--- NOTE | 2020-02-21 17:43 | PM.DCS ---
Discharge Providers Date of Admission: 02/21/20 12:37 Date of Discharge: February 21, 2020 Attending Provider at Admission: Kris Blackburn MD Attending Provider at Discharge: Kris Blackburn MD Primary Care Provider: GISEEL Lima Diagnoses at Discharge Discharge Diagnosis (1) Ectopic : Status: Acute Qualifiers: Intrauterine status: without intrauterine Laterality: right Location of ectopic : tubal Qualified Code(s): O00.101 - Right tubal without intrauterine (2) Acute blood loss anemia: Status: Acute Reason for Visit Reason for Visit: Reason For Visit: ECTOPIC Hospital Course Hospital Course: Patient is a 24-year-old white female 1, para 0 with an unsure LMP of 12/29/2019. She had been seen in the office by Dr. Sarabia on 02/19/2020 in follow-up of an ER visit for vaginal bleeding. She had had an ultrasound performed on 02/18 which had shown no intrauterine . She was being followed with serial hCGs. She presented to the ER again on 02/20 with sudden onset of abdominal pain, nausea, vomiting, and diarrhea. Pain continued to worsen and she was now having pain with lying down and with deep breathing. Ultrasound in the ER showed free fluid in the belly around the uterus and diaphragm and kidneys. No intrauterine was seen. H&H I was then consulted by the ER physician. Based upon these findings, I discussed with the patient that she has an ectopic that has most likely ruptured and is bleeding in her abdomen. I discussed with her that she needs to proceed to surgical evaluation and treatment. Questions were answered and she agreed to the surgery. She had a laparoscopic right salpingectomy for treatment of a tubal performed on 02/21/2020. At surgery she was found to have a ruptured right fallopian tube which was actively bleeding. The tube was completely removed which controlled the bleeding. She had 1100 mL of clotted blood evacuated from the abdomen. During the surgery she received 2 units of PRBCs. Because of the amount of blood loss and degree of anemia, she was monitored in the hospital after her surgery. On 02/09, her H&H was 12.8 and 39.4. On 02/20, time of initial evaluation in ER, H&H was 10.5 and 32.5. Just prior to going into the OR for surgery, her H&H was 8.6 and 26.7. She did not require any further blood following the surgery and was able to ambulate without symptoms. Her pain was able to be controlled and she was discharged to home later in the day on the day of surgery. Physical Exam Urinary Catheter Management^: Straight: Cath Placed During This Visit: no Discharge Data Data Completed and Pending: Completed Studies During Hospitalization Category Date Time Status US pelvic complet e* [id number] Urgent Ultrasound 02/21/20 09:15 Completed Pending at discharge Category Date Time Status ES surgery / GI i mages Routine Exams 02/21/20 10:40 Taken Leukocyte Reduced RBC Routine Lab 02/21/20 09:48 Results Type and Screen S tat Lab 02/21/20 09:48 Results Pathology: Surgic al [PTH] Routine Pth 02/21/20 12:04 Ordered Labs from last 24 hours 02/21/20 02/21/20 02/21/20 14:15 10:44 09:48 WBC 16.1 H RBC 3.91 L Hgb 11.5 D 8.6 L Hct 33.8 L 26.7 L MCV 86.4 MCH 29.4 MCHC 34.0 D RDW 14.0 Plt Count 242 MPV 9.3 Neut % (Auto) Lymph % (Auto) [place] % (Auto) Eos % (Auto) Baso % (Auto) Neut # (Auto) Lymph # (Auto) [place] # (Auto) Eos # (Auto) Baso # (Auto) Nucleated RBC % (a uto) Nucleated RBCs # Sodium Potassium Chloride Carbon Dioxide Anion Gap BUN Creatinine GFR Calculation Glucose Calculated Osmolal ity Lactate Calcium Total Bilirubin AST ALT Alkaline Phosphata se Total Protein Albumin Globulin Lipase Ser , Fer[place] i-Qnt Blood Type O Positive Rho(D) Type Positive Antibody Screen Negative Crossmatch See Detail 02/21/20 02/21/20 02/21/20 09:15 09:15 09:15 WBC 19.5 H RBC 3.58 L Hgb 10.5 L Hct 32.5 L MCV 90.8 MCH 29.3 MCHC 32.3 RDW 13.6 Plt Count 400 MPV 9.4 Neut % (Auto) 89.9 Lymph % (Auto) 7.2 [place] % (Auto) 2.3 Eos % (Auto) 0.0 Baso % (Auto) 0.1 Neut # (Auto) 17.5 H Lymph # (Auto) 1.4 [place] # (Auto) 0.4 Eos # (Auto) 0.0 Baso # (Auto) 0.0 Nucleated RBC % (a uto) 0 Nucleated RBCs # 0.0 Sodium 137 Potassium 4.5 Chloride 101 Carbon Dioxide 21 L Anion Gap 19.5 H BUN 18 Creatinine 0.8 GFR Calculation 89.7 L Glucose 181 H Calculated Osmolal ity 285 Lactate 3.1 H Calcium 9.0 Total Bilirubin 0.2 AST 15 ALT 13 Alkaline Phosphata se 54 Total Protein 7.2 Albumin 4.3 Globulin 2.9 Lipase 13 Ser , Fer[place] i-Qnt 2927.00 Blood Type Rho(D) Type Antibody Screen Crossmatch Vitals: Last Vital Signs Temp 97.6 F 02/21/20 13:10 Pulse 85 02/21/20 13:40 Resp 18 02/21/20 13:40 BP 102/66 02/21/20 13:40 Pulse Ox 98 02/21/20 13:40 Discharge Plan Discharge Patient Disposition: Home, Self-Care Condition: Stable Prescriptions: New hydrocodone-acetaminophen 5-325 mg Tablet 1 - 2 tab PO Q6H PRN (Reason: Moderate To Severe Pain) Qty: 30 RF: 0 ibuprofen 800 mg Tablet 800 mg PO TID PRN (Reason: pain) Qty: 40 RF: 0 Discharge Orders: Discharge Order (Routine); Ordered 02/21/20 Ordered By: Kris Blackburn Referrals: Kris Blackburn MD [Physician] - 03/06/20 11:00 am (Postoperative appointment) Discharge Diet: Advance as tolerated Discharge Activity: Limit activity as instructed Patient Instructions: Hydrocodone/Acetaminophen (By mouth), Ibuprofen (By mouth), Ectopic , OB Discharge Report, OB Laproscopic Surgery - [facility], OB Food/Drug Interaction Guide Discharge Date/Time: 02/21/20 18:24 Discharge Attestations Time Spent in Discharge Care*: less than 30 min Quality Metrics Clinical Quality Measures During this hospital stay, did patient experience: None Coding Level of Care Code Acute Portal Developer for Chg Fwd Diagnoses Ectopic O00.101 Intrauterine status: without intrauterine Laterality: right Location of ectopic : tubal Acute blood loss anemia D62
== END 2020-02-21 18:24 | disposition home or self-care (01) ==
LOC: ER 10:02 → OBGYN 13:46 → ER 14:31 → OPS 14:42 → OBGYN 14:45
PROVIDERS: Physician Assistant; Admitting Provider Obstetrics & Gynecology; Emergency Provider Family Medicine; PCP Nurse Practitioner; Visit Provider Obstetrics & Gynecology
PROC: (CPT 59150; principal; 2020-02-21 11:00)
DX: O00.101 Right tubal pregnancy without intrauterine pregnancy (principal); D62 Acute posthemorrhagic anemia
CPT/HCPCS: 59151; 12345; 36415; 71045; 76817; 76856; 80053; 83605; 83690; 84702; 85014; 85018; 85025; 85027; 86850; 86900; 86920; 88305; 96360; 96361; 96365; 96374; 96375; 99283; 99285; G0378; J1100; J1885; J2001; J2270; J2405; J2704; J2710; J3010; J3490; J7030; P9016

== ENCOUNTER → 2020-07-30 10:14 | Outpatient (BNVA) | payer OTHER, SELFPAY | PROVIDERS: PCP Nurse Practitioner; Visit Provider Obstetrics & Gynecology Reproductive Endocrinology | DX: E28.2 Polycystic ovarian syndrome (principal); N92.6 Irregular menstruation, unspecified; Z13.21 Encounter for screening for nutritional disorder; Z13.29 Encounter for screening for other suspected endocrine disorder; Z13.9 Encounter for screening, unspecified; N92.0 Excessive and frequent menstruation with regular cycle | CPT/HCPCS: 80053; 82652; 83001; 83036; 83520; 83525; 83615; 84144; 84146; 84403; 84439; 84443; 84450; 84702; 85025 ==

== ENCOUNTER → 2020-09-14 10:11 | Outpatient (BNVA) | payer OTHER, SELFPAY | PROVIDERS: PCP Nurse Practitioner; Visit Provider Nurse Practitioner | DX: M79.671 Pain in right foot (principal); M79.672 Pain in left foot | CPT/HCPCS: 73630 ==

== ENCOUNTER → 2020-09-17 08:25 | Outpatient (BNVA) | payer OTHER, SELFPAY | PROVIDERS: PCP Nurse Practitioner; Visit Provider Obstetrics & Gynecology Reproductive Endocrinology | DX: N92.6 Irregular menstruation, unspecified (principal); E28.2 Polycystic ovarian syndrome | CPT/HCPCS: 82670; 83001; 83615; 84144; 84702 ==

== ENCOUNTER → 2020-10-30 08:09 | Outpatient (BNVA) | payer OTHER, SELFPAY | PROVIDERS: PCP Nurse Practitioner; Visit Provider Obstetrics & Gynecology Reproductive Endocrinology | DX: N92.6 Irregular menstruation, unspecified (principal) | CPT/HCPCS: 82670; 83001; 83002; 84144; 84702 ==

== ENCOUNTER → 2021-10-27 15:00 | Outpatient (BNVA) | payer OTHER, SELFPAY | PROVIDERS: PCP Nurse Practitioner; Visit Provider Family Medicine | DX: Z01.812 Encounter for preprocedural laboratory examination (principal) | CPT/HCPCS: 87635 ==

== ENCOUNTER 2021-10-31 21:39 | Inpatient (IN) | payer OTHER, MEDICAID, SELFPAY ==
[2021-10-31] VITALS (17 sets, daily range): BP systolic 134–161; BP diastolic 60–83; PULSE 85–114; RESP 15; O2SAT 97–100; BMI 33.6
[2021-10-31] MEDS: lactated ringers 1,000 ML 999 ML IV (22:25)
[2021-10-31] MEDS: fentaNYL 50 mcg/mL INJ 2mL IVP (22:34)
[2021-10-31 22:47] LABS: Basophils % 0.3 %; Eosinophils # 0.1 10^3/uL (0.0-0.8); Eosinophils % 0.5 %; Hemoglobin 10.6 g/dL (11.5-15.3); Lymphocytes # 2.2 10^3/uL (0.8-4.8); Lymphocytes % 15.5 %; Mean Corpuscular HGB Conc 32.1 g/dL (30.0-36.0); Mean Platelet Volume 8.9 fL (7.4-10.4); Monocytes # 0.8 10^3/uL (0.2-0.9); Monocytes % 5.9 %; Neutrophils % 76.3 %; Nucleated Red Blood Cells % 0 %; Platelet Count 367 10^3/cmm (130-400); Red Blood Count 3.93 10^6/uL (4.1-5.3); Red Cell Distribution Width 13.9 % (12.1-15.1)
--- NOTE | 2021-10-31 23:57 | P.ANESASSM_ITS ---
Pre-Anesthetic Assessment Pre-Anesthetic Assessment: Height/Weight: Height 1.6 m Pulse Resp BP Pulse Ox 114 H 15 134/60 100 10/31/21 23:55 10/31/21 22:34 10/31/21 23:55 10/31/21 23:53 Preop Diagnosis: Active Labor Familial anesthetic complications: none Was Beta Marychuy taken within 24 hours: N/A Was Clonidine taken within 24 hours: N/A Last intake: clear liquids current meal 1830 Social: Social History: No alcohol and No tobacco Exam: Pre-Anes Outpt Exam: alert, oriented x 3 and clear to auscultation bilaterally Airway: Submandibular: WNL Cervical ROM: WNL MP: 2 Dentition: Full History/ROS: No significant history except as noted Pulmonary: Pulmonary: None reported Comments: COVID + CV/HEM: CV/HEM: None reported : : None reported Hepatic: Hepatic: None reported GI: GI: None reported Metabolic: Metabolic: None reported Musc/skel: Musc/skel: None reported Neuropsych: Neuropsych: Anxiety Anesthetic Plan: ASA status: 2 Anesthesia: Eval. for regional block Risk of > 500 ml blood loss (7ml/kg in children): No Medications/Allergies Current Medications: Current Medications Generic Name Dose Route Start Last Admin Trade Name Freq PRN Reason Stop Dose Admin Fentanyl 25 - 100 mcg 10/31/21 21:46 10/31/21 22:34 Fentanyl 50 Mcg/ Ml Inj 2ml IVP 100 mcg Q1H PRN Administration SEVERE PAIN Lactated Ringer's 1,000 mls @ 999 m ls/hr 10/31/21 21:49 10/31/21 22:25 Lactated Ringers IV 999 mls/hr .Q1H1M PRN Administration See label comment s PFSH Anesthesia PFSH: Medical History History of infertility She and her boyfriend were unable to get and as a result underwent evaluation for infertility in [id number] Wilkes the results of which were normal and she underwent 1 cycle of Clomid however decided to wait after that and not follow-up with any treatment. PCOS (polycystic ovarian syndrome) Situational anxiety Surgical History History of ectopic (02/21/20) laparoscopic right salpingectomy for treatment of ectopic History of oral surgery [place] teeth removal in 2013 Family History Family/Other Heart disease Paternal great uncles Father Hypertension Grandmother Multiple sclerosis maternal Denies family history of Colon cancer Ovarian cancer Diabetes Hyperlipidemia Breast cancer Uterine cancer Thyroid condition Stroke Social History Smoking and tobacco status: former smoker Second hand smoke exposure: No Smoking risk assessment/counseling performed?: No Alcohol intake: former Desire information about alcohol rehabilitation?: No Counseling given: No Desire information about substance/drug rehabilitation?: No Counseling given: No Adopted: No Caregiver/support person: No Lives independently: Yes Household members: spouse Housing: House service: No Current occupational status: employed History of recent travel: No Sexually active: Yes Current gender identity: Female Additional social history: - TOBACCO USE: Started smoking at age 18 and smoked up to 1 pack per day until 11/2019 when she stopped smoking. Denies any tobacco use since then. ALCOHOL USE: Reports history of social alcohol use, once yearly on average, denies use since becoming . DRUG USE: Has used marijuana 1-2 times a month from the age of 17 until the age of 19 and 2018. Denies any use since then. Denies any other drug use as well. 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 Female Reproductive History: Date of last menstrual period: 09/27/20 Gra yo: 2 Data Anesthesia CBC & Chem 7: 10/31/21 22:25 Other Labs: Laboratory Results - last 48 hr 10/31/21 22:25 WBC 14.0 H RBC 3.93 L Hgb 10.6 L Hct 33.0 L MCV 84.0 MCH 27.0 L MCHC 32.1 RDW 13.9 Plt Count 367 MPV 8.9 Neut % (Auto) 76.3 Lymph % (Auto) 15.5 [place] % (Auto) 5.9 Eos % (Auto) 0.5 Baso % (Auto) 0.3 Neut # (Auto) 10.70 H Lymph # (Auto) 2.2 [place] # (Auto) 0.8 Eos # (Auto) 0.1 Baso # (Auto) 0.0 Nucleated RBC % (auto) 0 Nucleated RBCs # 0.0 Cardiac Studies: No Data to Display
--- NOTE | 2021-10-31 23:59 | ANES.PROC ---
Anesthesia Procedures Procedure/Date: 10/31/21 Labor Epidural Epidural: Time Out Performed: Yes Consents Signed: Procedure Consent Consent: from patient, risks and benefits reviewed and patient agrees to proceed Lumbar Level: L4-L5 Epidural procedure: sterile prep of area, 1% lidocaine to numb the area, negative for paresthesia passed, test dose given, placed PCEA, no systemic response, sterile dressing applied, L.U.D. no apparent complications and 0.2% Ropiavacaine @ mls/hr (13ml/hr) Additional Comments: RIVKA @ 7 cm catheter threaded to 13 cm with ease care taken to avoid tattoo on spine. 4 ml 2% lidocaine given via epidural.
[2021-11-01] VITALS (120 sets, daily range): BP systolic 112–162; BP diastolic 53–103; PULSE 90–133; RESP 16–18; TEMP 35.9–37.2; O2SAT 91–100
[2021-11-01] MEDS: ondansetron 2 mg/ML SDV 2 mL 4 MG IVP (00:10)
[2021-11-01] MEDS: dextrose 5%-lactated ringers 1,000 ML 125 ML IV ×3 (00:37→16:52)
--- NOTE | 2021-11-01 09:07 | PM.OPHPUD ---
Labor & Delivery H&P Update Date of Procedure: November 01, 2021 Date H&P Performed: 10/27/21 H&P update information: I have reviewed H&P completed within last 30 days, I have examined patient prior to procedure, Changes to prior documentation as noted here and H&P to be scanned into chart Changes to previous documentation: The patient is complete. The baby appears to be in OP position. Admission Diagnosis: 26-year-old 2 para 0-0-1-0 with an estimated gestational age of 39 weeks and 5 days presenting in active labor, then failing to progress. Preop diagnosis: Failure to progress Planned procedure: Low transverse section Other information: The patient has had an unremarkable . Her blood type is O+. Her antibody screen is negative. On her Pap smear she was HPV positive with LGSIL. She passed her glucose screen. She is rubella immune. The remainder of her labs are within normal limits including being GBS negative. Her membranes been ruptured for about 12 hours. She has had a few blood pressures remain elevated. Overall they have been normal. heart tones have been reactive throughout. She pushed for 3 hours altogether. Vacuum was attempted and was used for 60 contractions. There were 2 pop offs. I discussed the risks of a with the parents including the risks of bleeding, infection, and damage to intra-abdominal organs. They have no further questions and wished to proceed. Related Problem List Diagnoses (1) 39 weeks gestation of : (2) Failure to progress in labor: (3) Lab test positive for detection of COVID-19 virus:
[2021-11-01] MEDS: lactated ringers 1,000 ML 999 ML IV (09:13)
--- NOTE | 2021-11-01 09:18 | P.ANESUD_ITS ---
Pre-Anesthetic Update Pre-Anesthetic Assessment: Date of Surgery/Procedure: 11/01/21 Preop Brianna gnosis: Failure to progress Any changes to Pre-Anesthetic Assessment?: No Labs Last 48hrs: Short CBC 10/31/21 Range/Units 22:25 WBC 14.0 H (4.0-10.0) 10^3/ uL Hgb 10.6 L (11.5-15.3) g/dL Hct 33.0 L (37.0-47.0) % MCV 84.0 (81-99) fl Plt Count 367 (130-400) 10^3/c mm Neut % (Auto) 76.3 % Neut # (Auto) 10.70 H (1.8-7.7) 10^3/u L Vitals: Temperature 97.2 F L 11/01/21 06:57 Pulse Rate 95 11/01/21 09:14 Respiratory Rate 15 10/31/21 22:34 Respiratory Effort Non-Labored 10/31/21 22:34 Respiratory Depth Normal 10/31/21 22:34 Respiratory Patter n 10/31/21 22:34 Blood Pressure 135/88 11/01/21 09:14 Pulse Oximetry 100 11/01/21 01:38 Exam: Pre-Anes Outpt Exam: alert, oriented x 3, clear to auscultation bilaterally and regular rate & rhythm Cardiac Studies: No Data to Display
[2021-11-01] MEDS: metoclopramide 5 mg/mL SDV 2 mL 10 MG IVP (09:19)
[2021-11-01] MEDS: citric acid-sodium citrate 30 mL UDC PO (09:19)
[2021-11-01] MEDS: famotidine 20 mg/2 mL INJ IVP (09:20)
--- NOTE | 2021-11-01 11:01 | PM.OP ---
Operative Report Date of procedure: November 01, 2021 Pre-op Diagnosis: Failure to progress, 39-week estimated gestational age Post-op diagnosis: same Procedure Done: Lower transverse section Specimens removed/disposition: 1. Female infant with a weight of and Apgars of 2. Placenta with three-vessel cord delivered intact Pathology: none sent Surgeon: Gabriel Barnard Anesthesia: Other (Spinal) Estimated blood loss (mL): 1,500 Complications: None Condition: stable Disposition: floor (Obstetric) Brief History: The patient is a 26-year-old 2 para 0-0-1-0 at 39 weeks estimated gestational age who had pushed for 3 hours with minimal movement of the baby. Procedure: The patient was brought back to the operating room where she was prepped and draped in usual sterile fashion. Anesthesia was found to be adequate. A lower transverse skin incision was then made with a #10 blade. I then dissected down to the underlying subcutaneous tissue until arriving at the prerectal fascia. The fascia was then nicked with the scalpel bilaterally. The fascial incisions were then carried laterally with Best scissors. Attention was then turned to the superior aspect of the incision which was grasped with kochers and tented up away from the underlying rectus abdominis muscles. The muscles were then dissected away from the fascia manually, and later with Best scissors. Attention was then turned to the inferior aspect of the incision, and the fascia was dissected away from the underlying muscle in similar fashion. The rectus abdominis muscles were then spread manually. The peritoneum was entered manually. Excellent visualization of the uterus was noted. A lower transverse uterine incision was then made with a #10 blade. Upon arriving at the intrauterine cavity, the uterine incision was then extended manually. The was noted to be in vertex position. The baby was delivered without difficulty. After delivery of the head, the mouth and nose were suctioned at the site of the incision. There was no meconium. There was no nuchal cord. The remainder of the body was then delivered and placed on the abdomen. The cord was cut and clamped. The baby was then handed to the waiting nurse. The placenta was removed intact. The uterus was externalized. The intrauterine cavity was cleansed of any remaining debris. The uterine incision was reapproximated in 2 layers. The patient had a large arterial bleed in the left angle of the uterine incision. Thankfully, it responded well to a [id number] stitch. It demonstrated excellent hemostasis. The first layer was performed with 0 Vicryl in a running locked stitch. The second layer was an imbricating stitch also using 0 Vicryl. The uterus was replaced into the abdomen. The peritoneum was then irrigated with warm saline. I reexamined the uterine incision and found it to be hemostatic. The rectus abdominis muscles were then reapproximated using 0 Vicryl in a running stitch. The fascia was then reapproximated using 0 Vicryl in running stitch. The subcutaneous tissue was reapproximated with 0 Vicryl in a running stitch. The skin was reapproximated using juan carlos. A sterile dressing was placed. All counts were correct x2. Both the mother and baby were in stable condition. Associated Problem List Diagnoses (1) Lab test positive for detection of COVID-19 virus: (2) Failure to progress in labor: (3) 39 weeks gestation of :
--- NOTE | 2021-11-01 11:47 | ANE.PACU2 ---
Inpatient post-anesthesia follow up: Airway intact: Yes Vital signs: Temperature 97.3 F Pulse Rate 110 Respiratory Rate 15 Blood Pressure 137/81 Pulse Oximetry 100 Oxygen Delivery Me thod Oxygen Flow Rate Fraction of Inspir ed Oxygen Hydration adequate: Yes Nausea and vomiting: No Pain level: 1 Mental status: Baseline
--- NOTE | 2021-11-01 12:26 | PC.NURSE ---
Epidural Epidural removed by Cipriano in OR postoperatively.
[2021-11-01] MEDS: ketorolac 30 mg/mL INJ IVP ×2 (14:32→20:46)
[2021-11-01] MEDS: HYDROcodone-acetaminophen 5-325 mg Tablet PO ×2 (17:04→21:01)
[2021-11-01] MEDS: docusate sodium 100 mg Capsule PO (18:03)
[2021-11-01 18:58] LABS: Hematocrit 20.7 % (37.0-47.0); Hemoglobin 6.7 g/dL (11.5-15.3); Mean Corpuscular HGB Conc 32.4 g/dL (30.0-36.0); Mean Corpuscular Hemoglobin 27.3 pg (28.0-34.0); Mean Corpuscular Volume 84.5 fl (81-99); Mean Platelet Volume 9.5 fL (7.4-10.4); Platelet Count 321 10^3/cmm (130-400); Red Blood Count 2.45 10^6/uL (4.1-5.3); Red Cell Distribution Width 14.1 % (12.1-15.1); White Blood Count 20.5 10^3/uL (4.0-10.0)
[2021-11-02] VITALS (115 sets, daily range): BP systolic 105–148; BP diastolic 54–73; PULSE 94–137; RESP 16–17; TEMP 36.4–36.8; O2SAT 93–100
[2021-11-02] MEDS: HYDROcodone-acetaminophen 5-325 mg Tablet PO ×4 (01:04→19:50)
[2021-11-02] MEDS: dextrose 5%-lactated ringers 1,000 ML 125 ML IV (01:58)
[2021-11-02] MEDS: ketorolac 30 mg/mL INJ IVP (03:02)
[2021-11-02 05:38] LABS: Mean Corpuscular HGB Conc 31.8 g/dL (30.0-36.0); Mean Corpuscular Hemoglobin 27.7 pg (28.0-34.0); Mean Platelet Volume 9.1 fL (7.4-10.4); Platelet Count 264 10^3/cmm (130-400); Red Blood Count 2.31 10^6/uL (4.1-5.3); Red Cell Distribution Width 14.4 % (12.1-15.1); White Blood Count 16.6 10^3/uL (4.0-10.0)
[2021-11-02 05:42] LABS: Hematocrit 20.1 % (37.0-47.0); Hemoglobin 6.4 g/dL (11.5-15.3)
--- NOTE | 2021-11-02 07:01 | PM.OBGYPN ---
SOLID WASTE ENGINEER Subjective Subjective: Interval history: The patient is doing well. Her breast-feeding is improving. Her bleeding has been minimal. She is feels much better. Her urine output is been appropriate. Vitals/I&O/Wt Last Vital Signs Temp 97.7 F 11/02/21 04:56 Pulse 111 H 11/02/21 04:57 Resp 18 11/01/21 12:01 BP 121/59 11/02/21 04:57 Pulse Ox 100 11/01/21 12:11 11/01/21 11/02/21 11/02/21 22:59 06:59 14:59 Intake Total 3800 / 3840 1000 / 4840 Output Total 550 / 800 900 / 1700 Balance 3250 / 3040 100 / 3140 Weight last 48 hrs Weight 190 lb Weight 190 lb Physical Exam Narrative: EXAM NARRATIVE: She is in no acute distress Lungs are clear auscultation bilaterally Her heart has a regular rate and rhythm Her fundus is below the umbilicus and firm Her dressing is clean, dry and intact Her extremities have trace edema Urinary Catheter Management^: Hurt: Cath Placed During This Visit: yes Reason for Continuing Indwelling Catheter: Other Urinary Catheter Date of Insertion: 11/01/21 Urinary Catheter Time of Insertion: 09:10 Data : 11/02/21 05:00 A&P Assessment and plan (1) Status post : The patient is doing very well overall. She is breast-feeding well. She is having pain but it is controlled with medication. We will recheck her hemoglobin in the morning to make sure it stable. Status: Acute (2) Postoperative anemia: Status: Acute Attestations Medical Necessity Statement*: Routine post care. I Anticipate she will be discharged tomorrow morning. Coding Level of Care Code Acute Automatic Buffing Wheel Former for Chg Fwd Diagnoses Status post Z98.891 Postoperative anemia D64.9
[2021-11-02] MEDS: prenatal vitamin Capsule 1 CAP PO (09:04)
[2021-11-02] MEDS: docusate sodium 100 mg Capsule PO ×2 (09:04→18:29)
[2021-11-02] MEDS: ferrous sulfate EC 325 mg Tablet PO ×2 (09:05→18:29)
--- NOTE | 2021-11-02 09:27 | US_ITS ---
WS: [id number] Abdomen ultrasound, limited. HISTORY: Evaluate for intra-abdominal blood. There is a large amount of shadowing obscuring the pelvis and retroperitoneum. The uterus is enlarged as expected for recent state. There is no fluid in Morison's pouch. US/US abdomen lmt fluid [id number] IMPRESSION: Limited ultrasound evaluation for any significant hemorrhage within the pelvis. There is no free fluid in Morison's pouch.
--- NOTE | 2021-11-02 09:39 | CT_ITS ---
WS: [id number] CT ABDOMEN AND PELVIS NONCONTRAST HISTORY: acute abdomen post op, possible bleeding. TECHNIQUE: Imaging performed through the abdomen and pelvis. Coronal and sagittal reformats are submi tted. All CT scans at [facility] use at least one of these dose optimization techniques: auto mated exposure control; mA and/or kV adjustment per patient size (includes targeted exams where dose is matched to clinical indication); or iterative reconstruction. DLP: 1651.05 mGy.cm COMPARISON: No similar studies. Lower thorax: Mild dependent changes at the lung bases. Heart is normal size. No hiatal hernia. Liver: Normal size liver. No mass or bile duct dilatation. Gallbladder: Normal gallbladder. Pancreas: Normal size and attenuation. Normal pancreatic duct. No pancreatitis or mass. Spleen: Normal. Adrenal glands: Normal. No mass. Right kidney: Normal size kidney with no mass or hydronephrosis. Left kidney: Normal size kidney with no mass or hydronephrosis. Aorta: Normal abdominal aorta, no aneurysm or atherosclerosis. There is a small amount of free fluid in the pelvis surrounding the enlarged uterus. There are hu us foci of free air scattered within the peritoneal cavity and along the anterior pelvis and adjacent to the uterus. Typical finding status post recent . There are a few scattered reactive retr operitoneal lymph nodes. GI tract: The appendix is not definitely identified. No GI tract obstruction. Limited evaluation of t he GI tract without oral or IV contrast. There is increased air within the colon. Abdominal wall: Postsurgical changes along the anterior pelvis. Row of surgical sutures over the low pelvis. Pelvis: There is a Hurt catheter present in a nondistended bladder. Uterus is enlarged. Foci of air with along the endometrial canal and through the cervix and vaginal canal. Moderate prominence of the cervix. No high density collection. There is a tiny area of increased density seen within the LEFT p cristy associated with the lateral uterus. This could be a very tiny arterial bleeder. Osseous structures: Unremarkable. CT/CT abdomen pelvis wo con [id number] IMPRESSION: 1. Enlarged uterus with numerous foci of air in the subcutaneous soft tissue a nd the intraperitoneal cavity probably all consistent with recent . 2. Tiny focus of increased density in the LEFT pelvis. Could represent a very tiny active arterial bleeder. This was discussed with Dr. Roylance. 3. Small amount of fluid adjacent to the uterus. No large hematoma. 4. Hurt catheter in a nondistended bladder.
[2021-11-02] MEDS: diphenhydrAMINE 50 mg/mL SDV 1mL 25 MG IVP (10:40)
[2021-11-02] MEDS: acetaminophen 325 mg Tablet 650 MG PO (10:40)
--- NOTE | 2021-11-02 15:40 | PC.NURSE ---
0905: this jingle writer entered the room to find the patient pale, sweating, reporting that she feels tired. pt reports belly pain around the umbilicus and the pt left side. this jingle writer at 0907 performed an assessment, this jingle writer listen to pt heart and lungs to find them both WNL, abdomen is round and rigid, and this jingle writer could not hear any fluid movement in the abdomen. This jingle writer then took a blood pressure and place SPo2 monitor on pt finger.
--- NOTE | 2021-11-02 15:59 | PC.NURSE ---
nguyen catheter placed at 0925, 16 Lebanese, 600mL of clear yellow urine in return
[2021-11-02] MEDS: sodium chloride 0.9% 1,000 ML 150 ML IV (16:18)
[2021-11-02 18:25] LABS: Basophils # 0.1 10^3/uL (0.0-0.1); Basophils % 0.3 %; Eosinophils % 0.2 %; Hematocrit 24.1 % (37.0-47.0); Hemoglobin 7.9 g/dL (11.5-15.3); Lymphocytes # 1.8 10^3/uL (0.8-4.8); Lymphocytes % 10.1 %; Mean Corpuscular HGB Conc 32.8 g/dL (30.0-36.0); Mean Corpuscular Hemoglobin 28.8 pg (28.0-34.0); Mean Platelet Volume 8.7 fL (7.4-10.4); Monocytes % 5.7 %; Neutrophils # 14.94 10^3/uL (1.8-7.7); Neutrophils % 82.3 %; Nucleated Red Blood Cells % 0 %; Platelet Count 246 10^3/cmm (130-400); Red Blood Count 2.74 10^6/uL (4.1-5.3); Red Cell Distribution Width 14.1 % (12.1-15.1); White Blood Count 18.2 10^3/uL (4.0-10.0)
[2021-11-02] MEDS: simethicone 80 mg Chew PO (18:29)
[2021-11-02] MEDS: ibuprofen 800 mg tablet PO (20:34)
[2021-11-03] VITALS (11 sets, daily range): BP systolic 119–133; BP diastolic 56–74; PULSE 88–102; RESP 16–17; TEMP 36.1–36.9
[2021-11-03] MEDS: sodium chloride 0.9% 1,000 ML 150 ML IV (00:13)
[2021-11-03] MEDS: HYDROcodone-acetaminophen 5-325 mg Tablet PO ×4 (02:56→16:31)
[2021-11-03 04:16] LABS: Basophils # 0.1 10^3/uL (0.0-0.1); Basophils % 0.3 %; Eosinophils # 0.2 10^3/uL (0.0-0.8); Hematocrit 21.9 % (37.0-47.0); Hemoglobin 7.1 g/dL (11.5-15.3); Lymphocytes # 2.7 10^3/uL (0.8-4.8); Lymphocytes % 16.2 %; Mean Corpuscular HGB Conc 32.4 g/dL (30.0-36.0); Mean Corpuscular Hemoglobin 28.5 pg (28.0-34.0); Mean Platelet Volume 8.9 fL (7.4-10.4); Monocytes # 1.1 10^3/uL (0.2-0.9); Monocytes % 6.4 %; Neutrophils # 12.41 10^3/uL (1.8-7.7); Neutrophils % 75.1 %; Nucleated Red Blood Cells % 0 %; Platelet Count 224 10^3/cmm (130-400); Red Blood Count 2.49 10^6/uL (4.1-5.3); Red Cell Distribution Width 14.1 % (12.1-15.1); White Blood Count 16.5 10^3/uL (4.0-10.0)
[2021-11-03] MEDS: prenatal vitamin Capsule 1 CAP PO (07:17)
[2021-11-03] MEDS: ferrous sulfate EC 325 mg Tablet PO ×2 (07:17→17:26)
--- NOTE | 2021-11-03 08:13 | P.PN_ITS ---
ENGINEER GEOPHYSICAL LABORATORY Subjective Subjective: Interval history: This note reflects the evaluation that occurred on November 02. The patient was seen in the morning at about 6:00 in was doing very well. She did not pass flatus, but her pain was well controlled. Her hemoglobin had dropped to 6.4, but she appeared to be an appropriate course otherwise. Vitals/I&O/Wt Last Vital Signs Temp 97.5 F L 11/02/21 21:36 Pulse 92 11/03/21 05:54 Resp 16 11/03/21 05:56 BP 133/74 11/03/21 05:54 Pulse Ox 96 11/02/21 13:52 11/02/21 11/03/21 11/03/21 22:59 06:59 14:59 Intake Total 1350 / 2700 1000 / 1000 Output Total 1300 / 3100 425 / 3525 200 / 200 Balance 50 / -400 -425 / -825 800 / 800 Physical Exam Narrative: EXAM NARRATIVE: During the initial evaluation in the morning the patient exam was as follows. The patient is alert. She appeared comfortable. Her heart had a regular rate and rhythm with no murmurs appreciated. Lungs were clear to auscultation bilaterally. Her fundus was firm and and at umbilicus. After being contacted by the nurse when I returned to reevaluate the patient her exam was as follows The patient was found to be diaphoretic and pale. She was tachycardic. Her lungs were clear to auscultation bilaterally. Her abdomen was very tender and she was guarding. Urinary Catheter Management^: Hurt: Cath Placed During This Visit: yes, but has since been removed by the nurse Reason for Continuing Indwelling Catheter: Decision to DC Catheter Urinary Catheter Date of Insertion: 11/01/21 Urinary Catheter Time of Insertion: 09:10 Date Urinary Catheter Removed: 11/03/21 Time Urinary Catheter Discontinued: 07:45 Data : 11/04/21 03:50 A&P Assessment and plan (1) Tachycardia: Status: Resolved (2) Postoperative anemia: Because of patient's overall condition deteriorated rather quickly, my concern that she had bleed was high, especially given the bleed that she had during her surgery. I ordered a bolus of normal saline. I also ordered 2 units of blood to be administered. I also ordered an ultrasound was ordered which did not find any significant fluid in the abdomen. A CT scan was then performed which did also did not find any difficult pockets of fluid in the abdomen. There were no other signs of complications or problems. Thankfully, her clinical condition improved throughout the day. Status: Resolved (3) Status post : Status: Resolved (4) Lab test positive for detection of COVID-19 virus: Status: Resolved Attestations Medical Necessity Statement*: If the patient does well moving forward, she may be going home in 2 days. Coding Level of Care Code Acute Video Games Mechanic for [facility] Fwd Diagnoses Tachycardia R00.0 Postoperative anemia D64.9 Status post Z98.891 Lab test positive for detection of COVID-19 virus U07.1
[2021-11-03] MEDS: docusate sodium 100 mg Capsule PO ×2 (09:05→17:26)
[2021-11-03] MEDS: ibuprofen 800 mg tablet PO ×3 (09:05→20:57)
--- NOTE | 2021-11-03 09:28 | PC.NURSE ---
0900 pt up to stand at bedside with minimal assistance. then ambulated to chair. remains sitting in chair at this time. pt encouraged to stay up for 1 hour, then we will walk a lap and get back to bed, understanding voiced. ice water given. call light in reach. pt remains sitting up holding baby at this time
[2021-11-03] MEDS: simethicone 80 mg Chew PO (10:11)
[2021-11-04] VITALS (7 sets, daily range): BP systolic 121–151; BP diastolic 65–73; PULSE 95–122; RESP 16–17; TEMP 36.3–37.1
[2021-11-04] MEDS: HYDROcodone-acetaminophen 5-325 mg Tablet PO ×3 (00:45→08:43)
[2021-11-04 03:58] LABS: Basophils % 0.2 %; Eosinophils # 0.3 10^3/uL (0.0-0.8); Hematocrit 23.7 % (37.0-47.0); Hemoglobin 7.6 g/dL (11.5-15.3); Lymphocytes # 2.1 10^3/uL (0.8-4.8); Lymphocytes % 17.2 %; Mean Corpuscular HGB Conc 32.1 g/dL (30.0-36.0); Mean Corpuscular Hemoglobin 28.5 pg (28.0-34.0); Mean Corpuscular Volume 88.8 fl (81-99); Mean Platelet Volume 8.7 fL (7.4-10.4); Monocytes # 0.7 10^3/uL (0.2-0.9); Monocytes % 5.3 %; Neutrophils # 9.21 10^3/uL (1.8-7.7); Neutrophils % 74.3 %; Nucleated Red Blood Cells % 0 %; Platelet Count 286 10^3/cmm (130-400); Red Blood Count 2.67 10^6/uL (4.1-5.3); Red Cell Distribution Width 14.6 % (12.1-15.1); White Blood Count 12.4 10^3/uL (4.0-10.0)
--- NOTE | 2021-11-04 07:37 | PM.OBGYDC ---
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 She had an unremarkable labor process but ultimately was unable to deliver the baby after 3 hours of pushing. We proceeded with a . Her was relatively unremarkable. She did have more bleeding than usual, but had excellent hemostasis upon termination of the . Her course was remarkable for having episode where she became diaphoretic and tachycardic with increasing abdominal pain the subsequent day. She was bolused with fluids, and given 2 units of packed red blood cells. A CT scan and ultrasound were performed which demonstrated minimal free fluid in the peritoneum. Her condition improved gradually during the remainder of the day. By the following day she felt much better. She breast-fed well. Her pain improved dramatically. She passed flatus. She tolerated a regular diet without problems. Information Peripartum Data: Infant Delivery Method: Physical Exam Urinary Catheter Management^: Hurt: Cath Placed During This Visit: yes, but has since been removed by the nurse Reason for Continuing Indwelling Catheter: Decision to DC Catheter Urinary Catheter Date of Insertion: 11/01/21 Urinary Catheter Time of Insertion: 09:10 Date Urinary Catheter Removed: 11/03/21 Time Urinary Catheter Discontinued: 07:45 History History History 1 Term 0 Miscarriages/Ectopic 0 0 Living Children 0 Discharge Data Data Completed and Pending: Completed Studies During Hospitalization Category Date Time Status CT abdomen pelvis wo con [id number] Stat Cat Scan 11/02/21 09:39 Completed [place] abdomen [place] [id number] Stat Ultrasound 11/02/21 09:27 Completed Labs from last 24 hours 11/04/21 03:50 WBC 12.4 H RBC 2.67 L Hgb 7.6 L Hct 23.7 L MCV 88.8 MCH 28.5 MCHC 32.1 RDW 14.6 Plt Count 286 MPV 8.7 Neut % (Auto) 74.3 Lymph % (Auto) 17.2 [place] % (Auto) 5.3 Eos % (Auto) 2.0 Baso % (Auto) 0.2 Neut # (Auto) 9.21 H Lymph # (Auto) 2.1 [place] # (Auto) 0.7 Eos # (Auto) 0.3 Baso # (Auto) 0.0 Nucleated RBC % (a uto) 0 Nucleated RBCs # 0.0 Addt'l Data from Hospital Stay: CT scan and ultrasound were relatively unremarkable. Her preoperative hemoglobin was 10.6. That dropped to 6.7 postoperatively. After symptoms consistent with anemia she was given 2 units of blood. Her hemoglobin then increased to 7.9, and was 7.6 prior to discharge. Her white blood count went from 14.0 on admission to 20.5 postoperatively, then tapered to 12.4 prior to discharge. Vitals: Last Vital Signs Temp 97.5 F L 11/04/21 03:43 Pulse 95 11/04/21 03:43 Resp 16 11/04/21 03:56 BP 133/72 11/04/21 03:43 Pulse Ox 96 11/02/21 13:52 Discharge Plan Discharge Patient Disposition: Home Condition: Stable Prescriptions: New hydrocodone-acetaminophen 5-325 mg Tablet 1 tab PO Q6H PRN (Reason: Moderate To Severe Pain) Qty: 28 RF: 0 ibuprofen 800 mg Tablet 800 mg PO TID Qty: 45 RF: 0 No Action No Known Home Medications RF: 0 Discharge Orders: Discharge Order (Routine); Ordered 11/04/21 Ordered By: Gabriel Barnard Referrals: Gabriel Barnard MD [Physician] - 4-7 days Discharge Diet: Usual diet Discharge Activity: Limit activity as instructed Patient Instructions: Depression (DC), Bleeding (DC), Preeclampsia and Eclampsia After Delivery (GEN), OB - Evon/Watson, OB Discharge Report, OB Food/Drug Interaction Guide, Opioid Safety, OB Home Care, OB Proud Parent Packet Discharge Attestations MECHANICAL SPREADER OPERATOR Time Spent in Discharge Care*: less than 30 min Coding Level of Care Code Acute Infertility Nurse for Chg Fwd Diagnoses Tachycardia R00.0 Postoperative anemia D64.9 Status post Z98.891 Lab test positive for detection of COVID-19 virus U07.1
[2021-11-04] MEDS: ferrous sulfate EC 325 mg Tablet PO (08:43)
[2021-11-04] MEDS: ibuprofen 800 mg tablet PO (08:43)
[2021-11-04] MEDS: prenatal vitamin Capsule 1 CAP PO (08:43)
[2021-11-04] MEDS: docusate sodium 100 mg Capsule PO (08:43)
== END 2021-11-04 09:10 | disposition home or self-care (01) | DRG 786 ==
LOC: OPOB 21:40 → OBGYN 21:40
PROVIDERS: Admitting Provider Family Medicine; PCP Nurse Practitioner; Visit Provider Family Medicine
PROC: 10D00Z1 Extraction of Products of Conception, Low, Open Approach (ICD-10-PCS; CPT 59514; principal; 2021-11-01 09:30)
DX: O62.8 Other abnormalities of forces of labor (principal); U07.1 COVID-19; O98.52 Other viral diseases complicating childbirth; O99.834 Other infection carrier state complicating childbirth; Z22.8 Carrier of other infectious diseases; O66.5 Attempted application of vacuum extractor and forceps; Z3A.39 39 weeks gestation of pregnancy; O99.344 Other mental disorders complicating childbirth; F41.9 Anxiety disorder, unspecified; Z37.0 Single live birth; O75.89 Other specified complications of labor and delivery; O90.81 Anemia of the puerperium; R00.0 Tachycardia, unspecified
CPT/HCPCS: 12345; 36415; 36430; 51702; 59409; 74176; 76705; 83986; 85025; 85027; 86850; 86900; 86920; 96374; 96375; J1200; J1885; J2370; J2405; J2765; J2795; J3010; J3490; J7030; P9016

== ENCOUNTER → 2022-09-12 12:08 | Outpatient (BNVA) | payer OTHER, MEDICAID, SELFPAY | PROVIDERS: PCP Nurse Practitioner; Visit Provider Nurse Practitioner Family | DX: E28.2 Polycystic ovarian syndrome (principal); F41.8 Other specified anxiety disorders; F32.A Depression, unspecified | CPT/HCPCS: 80053; 84443 ==

== ENCOUNTER → 2023-01-30 08:45 | Outpatient (BNVA) | payer OTHER, MEDICAID, SELFPAY | PROVIDERS: PCP Nurse Practitioner; Visit Provider Nurse Practitioner Family | DX: Z34.90 Encounter for supervision of normal pregnancy, unspecified, unspecified trimester (principal); N91.1 Secondary amenorrhea | CPT/HCPCS: 80053; 84702 ==

== ENCOUNTER → 2023-02-01 08:45 | Outpatient (BNVA) | payer OTHER, MEDICAID, SELFPAY | PROVIDERS: PCP Nurse Practitioner; Visit Provider Nurse Practitioner Family | DX: Z34.90 Encounter for supervision of normal pregnancy, unspecified, unspecified trimester (principal) | CPT/HCPCS: 84702 ==

== ENCOUNTER → 2024-03-19 15:16 | Outpatient (BNVA) | payer MEDICAID, SELFPAY | PROVIDERS: PCP Nurse Practitioner; Visit Provider Nurse Practitioner Women's Health | DX: N92.6 Irregular menstruation, unspecified (principal); Z13.1 Encounter for screening for diabetes mellitus | CPT/HCPCS: 82465; 83036; 83520; 84146; 84439; 84443; 84702 ==

== ENCOUNTER → 2024-04-15 11:13 | Outpatient (BNVA) | payer MEDICAID, SELFPAY | PROVIDERS: PCP Nurse Practitioner; Visit Provider Nurse Practitioner Women's Health | DX: N92.6 Irregular menstruation, unspecified (principal); N83.8 Other noninflammatory disorders of ovary, fallopian tube and broad ligament | CPT/HCPCS: 76830 ==

== ENCOUNTER → 2025-03-04 15:18 | Outpatient (BNVA) | payer MEDICAID, SELFPAY | PROVIDERS: PCP Nurse Practitioner; Visit Provider Nurse Practitioner Women's Health | DX: Z36.87 Encounter for antenatal screening for uncertain dates (principal) | CPT/HCPCS: 76817; 81025; 82950; 84702 ==

== ENCOUNTER → 2025-03-24 14:47 | Outpatient (BNVA) | payer MEDICAID, SELFPAY | PROVIDERS: PCP Nurse Practitioner; Visit Provider Nurse Practitioner Women's Health | DX: Z34.90 Encounter for supervision of normal pregnancy, unspecified, unspecified trimester (principal) | CPT/HCPCS: 80307; 84315; 84443; 85025; 86592; 86762; 86803; 86850; 86900; 87086; 87340; 87491; 87591; 87661; 87806 ==

== ENCOUNTER → 2025-03-26 13:36 | Outpatient (BNVA) | payer MEDICAID, SELFPAY | PROVIDERS: PCP Nurse Practitioner; Visit Provider Nurse Practitioner Women's Health | DX: Z36.9 Encounter for antenatal screening, unspecified (principal) | CPT/HCPCS: 76817 ==

== ENCOUNTER → 2025-04-02 10:05 | Outpatient (BNVA) | payer MEDICAID, SELFPAY | PROVIDERS: PCP Nurse Practitioner; Visit Provider Obstetrics & Gynecology | DX: Z34.90 Encounter for supervision of normal pregnancy, unspecified, unspecified trimester (principal); Z98.890 Other specified postprocedural states; E28.2 Polycystic ovarian syndrome | CPT/HCPCS: 82950; 84315; 87086; 87624 ==

== ENCOUNTER → 2025-05-14 14:11 | Outpatient (BNVA) | payer MEDICAID, SELFPAY | PROVIDERS: PCP Nurse Practitioner; Visit Provider Nurse Practitioner Women's Health | DX: Z34.80 Encounter for supervision of other normal pregnancy, unspecified trimester (principal) | CPT/HCPCS: 82105; 84315; 87491; 87591; 87661 ==

== ENCOUNTER → 2025-06-02 11:53 | Outpatient (BNVA) | payer MEDICAID, SELFPAY | PROVIDERS: PCP Nurse Practitioner; Visit Provider Clinical Nurse Specialist Adult Health | DX: J06.9 Acute upper respiratory infection, unspecified (principal) | CPT/HCPCS: 87880 ==

== ENCOUNTER → 2025-06-12 14:25 | Outpatient (BNVA) | payer MEDICAID, SELFPAY | PROVIDERS: PCP Nurse Practitioner; Visit Provider Obstetrics & Gynecology | DX: Z36.9 Encounter for antenatal screening, unspecified (principal) | CPT/HCPCS: 76805 ==

== ENCOUNTER → 2025-06-23 13:00 | Outpatient (BNVA) | payer MEDICAID, SELFPAY | PROVIDERS: PCP Nurse Practitioner; Visit Provider Obstetrics & Gynecology | DX: Z34.90 Encounter for supervision of normal pregnancy, unspecified, unspecified trimester (principal) | CPT/HCPCS: 84315 ==

== ENCOUNTER 2025-07-12 15:11 | Outpatient (CLI) | payer MEDICAID, SELFPAY ==
[2025-07-12 15:15] VITALS: BMI 28.7
[2025-07-12 15:26] VITALS: BP 126/61; PULSE 74
[2025-07-12 15:46] VITALS: BP 110/57; PULSE 77
[2025-07-12 16:06] LABS: Glucose Urine UA Negative (Normal); Nitrate Urine Negative (Negative); Specific Gravity, Urine 1.018 (1.005-1.030)
[2025-07-12 16:08] VITALS: BP 110/53; PULSE 83
--- NOTE | 2025-07-12 16:10 | USR_ITS ---
PROCEDURE INFORMATION: Exam: US , Limited Exam date and time: 07/12/2025 4:46 PM Age: 30 years old Clinical indication: Lmp or gestational age (in weeks): 24w4d; Antepartum complications; Bleeding; ; Additional info: Rule out abruption LABS AND CLINICAL REPORTS: Gestational age (Established): 24 w 4 d Estimated due date (Established): 10/28/2025 TECHNIQUE: Imaging protocol: Real-time ultrasound of the maternal uterus with image documentation. Exam focused on the clinical indication. COMPARISON: US OB >= 14 weeks fetus [id number] 06/12/2025 2:44 PM FINDINGS: Gestation: Intrauterine gestation. heart rate: 153 bpm . Active fetus. Placenta: Placenta is anterior. No sign of placenta abruption. MATERNAL: Cervix: Normal. Cervical length measures 3.2 cm. US/US OB limited [id number] IMPRESSION: Viable intrauterine gestation. No acute findings.
[2025-07-12 16:26] VITALS: BP 112/54; PULSE 80
== END 2025-07-12 17:25 | disposition home or self-care (01) ==
LOC: OPOB 15:15 → OBGYN 15:16
PROVIDERS: PCP Nurse Practitioner; Visit Provider Family Medicine
DX: O26.859 Spotting complicating pregnancy, unspecified trimester (principal); Z3A.00 Weeks of gestation of pregnancy not specified
CPT/HCPCS: 59025; 76815; 81001; 99211

== ENCOUNTER → 2025-07-30 12:20 | Outpatient (BNVA) | payer MEDICAID, SELFPAY | PROVIDERS: PCP Nurse Practitioner; Visit Provider Obstetrics & Gynecology | DX: Z34.92 Encounter for supervision of normal pregnancy, unspecified, second trimester (principal); Z3A.27 27 weeks gestation of pregnancy | CPT/HCPCS: 82950 ==

== ENCOUNTER → 2025-08-25 10:54 | Outpatient (BNVA) | payer MEDICAID, SELFPAY | PROVIDERS: PCP Nurse Practitioner; Visit Provider Obstetrics & Gynecology | DX: Z34.93 Encounter for supervision of normal pregnancy, unspecified, third trimester (principal); Z3A.30 30 weeks gestation of pregnancy; Z98.891 History of uterine scar from previous surgery | CPT/HCPCS: 84315 ==

== ENCOUNTER → 2025-09-03 14:30 | Outpatient (BNVA) | payer MEDICAID, SELFPAY | PROVIDERS: PCP Nurse Practitioner; Visit Provider Obstetrics & Gynecology | DX: Z34.93 Encounter for supervision of normal pregnancy, unspecified, third trimester (principal); Z3A.32 32 weeks gestation of pregnancy | CPT/HCPCS: 84315 ==

== ENCOUNTER → 2025-09-18 12:54 | Outpatient (BNVA) | payer MEDICAID, SELFPAY | PROVIDERS: PCP Nurse Practitioner; Visit Provider Nurse Practitioner Women's Health | DX: Z34.93 Encounter for supervision of normal pregnancy, unspecified, third trimester (principal); Z3A.34 34 weeks gestation of pregnancy | CPT/HCPCS: 84315 ==

== ENCOUNTER → 2025-10-01 10:19 | Outpatient (BNVA) | payer BC, MEDICAID, SELFPAY | PROVIDERS: PCP Nurse Practitioner; Visit Provider Obstetrics & Gynecology | DX: Z34.83 Encounter for supervision of other normal pregnancy, third trimester (principal) | CPT/HCPCS: 84315; 87081 ==

== ENCOUNTER → 2025-10-08 10:19 | Outpatient (BNVA) | payer BC, MEDICAID, SELFPAY | PROVIDERS: PCP Nurse Practitioner; Visit Provider Obstetrics & Gynecology | DX: Z34.83 Encounter for supervision of other normal pregnancy, third trimester (principal); Z3A.37 37 weeks gestation of pregnancy | CPT/HCPCS: 84315; 85025 ==

== ENCOUNTER → 2025-10-15 15:41 | Outpatient (BNVA) | payer BC, MEDICAID, SELFPAY | PROVIDERS: PCP Nurse Practitioner; Visit Provider Obstetrics & Gynecology | DX: Z34.83 Encounter for supervision of other normal pregnancy, third trimester (principal); Z3A.38 38 weeks gestation of pregnancy | CPT/HCPCS: 84315 ==